=== PATIENT | female | born 1930 | race Caucasian/White ===

== ENCOUNTER 2016-07-19 07:17 | Inpatient (IN) ==
--- NOTE | 2016-07-19 07:34 | Emergency Department Note ---
Disposition Clinical Impression: CHF (congestive heart failure) Disposition: Admitted As Inpatient Condition: Fair Referrals: Brayden Ramirez MD [Primary Care Provider] - Forms: ED Satisfaction Letter Time of Disposition: 10:34 Weakness HPI - General Chief complaint: ED Weakness Stated complaint: Weakness, congestion Time Seen by Provider: 07/19/16 07:24 Source: patient Mode of arrival: ambulatory Limitations: no limitations Nursing Notes Reviewed: Yes Vital Signs Reviewed: Yes - History of Present Illness HPI Narrative: A 6-year-old female with past medical history of hypertension presents with 1-2 days of gradually worsening weakness and exertional dyspnea. She denies any associated cough, chest pain, GI or symptoms. She denies any sick contacts. She denies any injury or recent medication changes. She states that normally she is able to go upstairs home without shortness of breath, but has struggled significantly with that as well as had subjective weakness generally. She denies any confusion, fever, vomiting, rashes or edema. She denies history of similar symptoms. Pt Subjective Complaint: generalized weakness/fatigue Pain Scale: 8 - Related Data Home Medications Medication Instructions Recorded Confirmed Ascorbic Acid [Vitamin C] 1,000 mg PO DAILY 07/19/16 07/19/16 Atenolol [Atenolol] 100 mg PO DAILY 07/19/16 07/19/16 Calcium Carbonate [Calcium] 600 mg PO DAILY 07/19/16 07/19/16 Cholecalciferol (D-3) [Vitamin D] 2,000 unit PO DAILY 07/19/16 07/19/16 Losartan/Hydrochlorothiazide 1 tab PO DAILY 07/19/16 07/19/16 [Losartan-Hctz 100-25 mg Tab] Naproxen Sodium [Aleve] 220 mg PO BID 07/19/16 07/19/16 Pravastatin Sodium [Pravastatin 40 mg PO DAILY 07/19/16 07/19/16 Sodium] Allergies Allergy/AdvReac Type Severity Reaction Status Date / Time No Known Allergies Allergy Verified 07/19/16 07:21 All systems ED: reviewed and negative except as stated. Past Medical History - Past Medical History Attestation: Yes The following information was validated with the patient. Source: patient Medical history: Reports: hypertension Psychiatric history: Reports: no psych history - Social History Smoking Status: Never smoker Smokeless Tobacco Status: No Alcohol use: Reports: none Drug use: Reports: none Physical Exam - Head Head exam: atraumatic, normocephalic, normal inspection - Eye Eye exam: Present: normal appearance, PERRL, EOMI - ENT ENT exam: normal exam, normal oropharynx, mucous membranes moist - Neck Neck exam: Present: normal inspection, full ROM, trachea midline - Chest Chest inspection: Present: normal inspection, symmetric chest wall rise - Respiratory Breath sounds mildly coarse throughout with rales or thing. Patient speaking in 3 to 4 word sentences. Cardiovascular Cardiovascular exam: Present: regular rate, normal rhythm, normal heart sounds - Abdominal Exam Abdominal exam: Present: soft, Non-Tender. Absent: tenderness, distention, guarding, rebound, rigidity - Extremities Exam Extremities exam: Present: normal inspection, full ROM - Expanded Lower Extremity Exam Hip/Pelvis exam: Present: normal inspection, full ROM - Back Exam Back exam: Present: normal inspection, full ROM. Absent: tenderness, CVA tenderness (R), CVA tenderness (L) - Neurological Exam Neurological exam: Present: alert, oriented X3, CN II-XII intact - Psychiatric Psychiatric exam: Present: normal affect, normal mood - Skin Skin exam: Present: warm, dry, intact, normal color - General Limitations: no limitations General appearance: alert, in no apparent distress Course - Reevaluation(s) Reevaluation #1: CTA of the chest is consistent with congestive heart failure. No signs of PE. Patient given nitro paste and Lasix. Patient stable for admission this time. Oxygen saturation is greater than 92% on oxygen by nasal cannula. Time: 10:32 Reevaluation #2: Accepted by Dr. Purdy. Time: 10:36 Vital Signs Temperature 97.4 F L 07/19/16 07:19 Pulse Rate 92 07/19/16 07:19 Respiratory Rate 16 07/19/16 07:19 Blood Pressure 144/89 07/19/16 07:19 O2 Sat by Pulse Oximetry 90 L 07/19/16 07:19 Temperature 97.4 F L 07/19/16 07:19 Pulse Rate 87 07/19/16 09:18 Respiratory Rate 16 07/19/16 09:18 Blood Pressure 130/76 07/19/16 09:18 O2 Sat by Pulse Oximetry 93 L 07/19/16 09:18 Oxygen Delivery Oxygen Delivery Nasal Cannula Weakness - Medical Records Medical records reviewed: Yes I reviewed the patient's medical records. - Lab Data Lab results reviewed: Yes I reviewed the patient's lab results. Result diagrams: 07/19/16 07:58 07/19/16 07:58 Lab Results 07/19/16 07/19/16 07/19/16 Range/Units 07:58 07:58 07:58 WBC 13.8 H (4.3-11.1) K/mcL RBC 4.52 (3.82-4.97) M/mcL Hgb 13.0 (11.5-15.4) g/dL Hct 40.6 (35.3-44.9) % MCV 89.8 (83.0-100.0) fL MCH 28.8 (28.0-33.3) pg MCHC 32.0 (31.6-35.5) g/dL RDW 14.3 (11.5-14.5) % Plt Count 289 (140-400) K/mcL MPV 9.6 (9.4-12.4) fL Immature Gran % 0.4 (0-4) % Seg Neutrophils % 87.6 % Lymphocytes % 6.3 % Monocytes % 4.9 % Eosinophils % 0.3 % Basophils % 0.5 % Neutrophils # 12.1 H (1.6-8.9) K/mcL Lymphocytes # 0.9 (0.6-4.6) K/mcL Monocytes # 0.7 (0.0-1.3) K/mcL Eosinophils # 0.0 (0.0-0.6) K/mcL Basophils # 0.1 (0.0-0.2) K/mcL PT (9.4-12.1) Seconds INR APTT (26.0-36.0) Seconds D-Dimer (0-500) ng/mLFEU Sodium 138 (136-145) mEq/L Potassium 4.1 (3.5-4.5) mEq/L Chloride 103 (98-109) mEq/L Carbon Dioxide 20 (19-29) mEq/L BUN 31 H (7-20) mg/dL Creatinine 1.14 H (0.57-1.11) mg/dL Est GFR ( Amer) 55 L (> 60) Est GFR (Non-Af Amer) 45 L (> 60) BUN/Creatinine Ratio 27 H (6-26) Glucose 120 H (70-99) mg/dL Calculated Osmolality 294 (280-300) Calcium 10.5 (8.6-10.8) mg/dL Troponin I 0.03 (0-0.03) ng/mL B-Natriuretic Peptide (0-100) pg/mL 07/19/16 07/19/16 07/19/16 Range/Units 07:58 07:58 07:58 WBC (4.3-11.1) K/mcL RBC (3.82-4.97) M/mcL Hgb (11.5-15.4) g/dL Hct (35.3-44.9) % MCV (83.0-100.0) fL MCH (28.0-33.3) pg MCHC (31.6-35.5) g/dL RDW (11.5-14.5) % Plt Count (140-400) K/mcL MPV (9.4-12.4) fL Immature Gran % (0-4) % Seg Neutrophils % % Lymphocytes % % Monocytes % % Eosinophils % % Basophils % % Neutrophils # (1.6-8.9) K/mcL Lymphocytes # (0.6-4.6) K/mcL Monocytes # (0.0-1.3) K/mcL Eosinophils # (0.0-0.6) K/mcL Basophils # (0.0-0.2) K/mcL PT 12.9 H (9.4-12.1) Seconds INR 1.2 APTT 27.7 (26.0-36.0) Seconds D-Dimer 1762 H (0-500) ng/mLFEU Sodium (136-145) mEq/L Potassium (3.5-4.5) mEq/L Chloride (98-109) mEq/L Carbon Dioxide (19-29) mEq/L BUN (7-20) mg/dL Creatinine (0.57-1.11) mg/dL Est GFR ( Amer) (> 60) Est GFR (Non-Af Amer) (> 60) BUN/Creatinine Ratio (6-26) Glucose (70-99) mg/dL Calculated Osmolality (280-300) Calcium (8.6-10.8) mg/dL Troponin I (0-0.03) ng/mL B-Natriuretic Peptide 949 H (0-100) pg/mL - Radiology Data Radiology results reviewed: Yes I reviewed the patient's radiology results. - EKG Data EKG attestation: Yes I reviewed and interpreted this EKG. EKG results narrative: Normal size rhythm at 94 with normal axis and intervals. No ST elevation or depression. Nonspecific diffuse T-wave flattening. Nonspecific T wave changes are new compared with 06/28/2005.
[2016-07-19 08:13] LABS: Basophils # 0.1 K/mcL (0.0-0.2); Basophils % 0.5 %; Eosinophils % 0.3 %; Hematocrit 40.6 % (35.3-44.9); Immature Granulocytes % 0.4 % (0-4); Lymphocytes # 0.9 K/mcL (0.6-4.6); Lymphocytes % 6.3 %; Mean Corpuscular Hemoglobin 28.8 pg (28.0-33.3); Mean Corpuscular Volume 89.8 fL (83.0-100.0); Mean Platelet Volume 9.6 fL (9.4-12.4); Monocytes # 0.7 K/mcL (0.0-1.3); Monocytes % 4.9 %; Neutrophils # 12.1 K/mcL (1.6-8.9); Platelet Count 289 K/mcL (140-400); Red Blood Count 4.52 M/mcL (3.82-4.97); Red Cell Distribution Width 14.3 % (11.5-14.5); Segmented Neutrophils % 87.6 %
[2016-07-19 08:24] LABS: Calcium 10.5 mg/dL (8.6-10.8); INR 1.2; Potassium 4.1 mEq/L (3.5-4.5); Prothrombin Time 12.9 Seconds (9.4-12.1)
[2016-07-19 08:27] LABS: Activated Partial Thrombo Time 27.7 Seconds (26.0-36.0)
[2016-07-19] MEDS ORDERED: 0.9 % Sodium Chloride 500 ML IV ONE (09:00)
[2016-07-19] MEDS ORDERED: Furosemide 40 MG/4 ML VIAL IVP ONE (10:29)
[2016-07-19] MEDS ORDERED: Nitroglycerin 1 INCH/GM PACKET TP ONE (10:30)
[2016-07-19] MEDS ORDERED: *HR* Morphine 2 MG/ML SYRINGE IV PRN (10:53)
[2016-07-19] MEDS ORDERED: Ondansetron 4 MG/2 ML VIAL IVP PRN (10:55)
[2016-07-19] MEDS ORDERED: Naloxone 0.4 MG/ML INJ IVP PRN (10:55)
[2016-07-19] MEDS ORDERED: Ibuprofen 400 MG TABLET PO PRN (10:55)
[2016-07-19] MEDS ORDERED: Acetaminophen 325 MG TABLET PO PRN (10:55)
--- NOTE | 2016-07-19 11:01 | Internal Med History&Physical ---
Date of Encounter: 07/19/16 Time of Encounter: 10:59 Assessment and Plan (1) CHF (congestive heart failure) Current visit: Yes Status: Acute Acute hypoxic respiratory failure secondary to pulmonary edema with bilateral pleural effusions likely secondary to acute CHF systolic versus diastolic, new onset Continue aggressive diuresis with IV Lasix, BiPAP, oxygen therapy Strict I's and O's, daily weight Echocardiogram Qualifiers: Congestive heart failure type: unspecified congestive heart failure type Congestive heart failure chronicity: acute Qualified Code(s): I50.9 - Heart failure, unspecified (2) Respiratory failure Current visit: Yes Status: Acute Qualifiers: Chronicity: acute Respiratory failure complication: hypoxia Qualified Code(s): J96.01 - Acute respiratory failure with hypoxia (3) Hypertension Current visit: Yes Status: Acute Qualifiers: Hypertension type: essential hypertension Qualified Code(s): I10 - Essential (primary) hypertension (4) Hyperlipidemia Current visit: Yes Status: Acute Qualifiers: Hyperlipidemia type: unspecified Qualified Code(s): E78.5 - Hyperlipidemia , unspecified (5) Leukocytosis Current visit: Yes Status: Acute CT scan possibly shows a small bibasilar infiltrates May discontinue Rocephin Omeprazole for GI prophylaxis and subcutaneous heparin for DVT prophylaxis. The patient will be admitted as inpatient, she is expected to stay more than 2 midnights. Full code. Time spent on this admission 40 minutes. High risk due to respiratory failure Qualifiers: Leukocytosis type: unspecified Qualified Code(s): D72.829 - Elevated white blood cell count, unspecified Internal Medicine - H&P: HPI Chief complaint: Shortness of breath Admitted From: Emergency Dept History of present illness: Ms. Marshall is a 86 year old female with no history of CHF, medical history of hypertension and hyperlipidemia. Comes to the emergency room in severe respiratory distress that has been getting worse for the past 2 days. The patient was not able to lay flat and was not able to speak in full sentences. She denied any sick contacts. A d-dimer was elevated for which CT angiogram chest was performed showing bilateral pleural effusions with pulmonary edema but no pulmonary emboli. Also shows T12 burst fracture. White blood cell count is 13.8 heart rate 92, the patient desaturated down to the 70s and is currently on BiPAP. BNP is 949. She was given a dose of Lasix at the emergency room. Denies any chest pain at the moment, no other complaints but is still in distress. Past Med Surg Social Fam HX - Past Medical History Medical history: hyperlipidemia, hypertension, other (Vitamin D deficiency, osteopenia, compression fractures) Psychiatric history: no psych history - Past Surgical History Surgical History: other (Hysterectomy and multiple back surgeries) - Social History Smoking Status: Never smoker Smokeless Tobacco Status: No Alcohol use: none Drug use: none - Additional Family History Additional family history: No family history Internal Medicine - H&P: Meds Ascorbic Acid [Vitamin C] 1,000 mg PO DAILY 07/19/16 [History] Atenolol [Atenolol] 100 mg PO DAILY 07/19/16 [History] Calcium Carbonate [Calcium] 600 mg PO DAILY 07/19/16 [History] Cholecalciferol (D-3) [Vitamin D] 2,000 unit PO DAILY 07/19/16 [History] Losartan/Hydrochlorothiazide [Losartan-Hctz 100-25 mg Tab] 1 tab PO DAILY [History] Naproxen Sodium [Aleve] 220 mg PO BID 07/19/16 [History] Pravastatin Sodium [Pravastatin Sodium] 40 mg PO DAILY 07/19/16 [History] Allergies No Known Allergies Allergy (Verified 07/19/16 07:21) All Systems PM: A 10-system review of systems was performed and is negative for pertinent findings except as documented above in the HPI. Review of systems: Very short of breath, no fevers, no abdominal pain, no dysuria. Other systems out of the 10 reviewed were negative - Constitutional Vitals: Temp Pulse Resp BP Pulse Ox 97.4 F L 87 16 130/76 99 07/19/16 07:19 07/19/16 09:18 07/19/16 10:54 07/19/16 09:18 07/19/16 10:54 General appearance: Present: A&O X 3, severe distress - Head Head exam: Present: atraumatic, normocephalic - Eye Eye exam: Present: PERRL, conjuntiva pink, sclera anicteric Pupils: Present: PERRL - Neck Neck exam general surgery: Present: supple, trachea midline. Absent: lymphadenopathy - Respiratory Respiratory exam: Present: CTAB, rales (Diffuse coarse crackles with blunted breath sounds at both bases). Absent: accessory muscle use, rhonchi, wheezes - Cardiovascular Cardiovascular exam: Present: RRR, +S1, +S2. Absent: diastolic murmur, gallop, rubs, systolic murmur - GI/Abdominal GI/Abdominal exam: Present: normal bowel sounds, soft, no peritoneal signs. Absent: distended, tenderness - Extremities Exam Extremities exam: Present: pedal edema (+ 1 pitting edema in both lower extremities), warm, radial pulses palpable and symetrical. Absent: calf tenderness, cyanotic - Neurological Exam Neurological exam: Present: CN II-XII intact, oriented X3, no focal deficits. Absent: pronater drift, facial droop, speech deficit - Skin Skin exam: Present: dry, intact Internal Med - H&P Results - Labs CBC & Chem 7: 07/19/16 07:58 07/19/16 07:58
[2016-07-19 11:08] LABS: Bilirubin,Urine Negative (Negative); Blood,Urine Small (Negative); Clarity,Urine Clear (Clear); Color,Urine Yellow (Yellow); Glucose,Urine (UA) Normal (Normal); Ketones,Urine Negative (Negative); Leukocyte Esterase,Urine Trace (Negative); Nitrite,Urine Negative (Negative); Protein,Urine Negative (Neg-Trace); Specific Gravity,Urine 1.022 (1.010-1.025); Urobilinogen,Urine Normal (Normal)
[2016-07-19 11:12] LABS: Bacteria,Urine None Seen per hpf (None-Few); Hyaline Casts,Urine None Seen per lpf (None-Few); Squamous Epithelial Cell,Urine Many per lpf (None-Few); WBC,Urine 0-3 per hpf (0-3)
[2016-07-19] MEDS: Furosemide 40 MG/4 ML VIAL IV SCH ×2 (13:19→17:29)
[2016-07-19] MEDS: *HR* Heparin 5,000 UNIT/ML VIAL SQ SCH ×2 (17:30→23:39)
--- NOTE | 2016-07-19 19:05 | ECHO - Doppler Report ---
Echocardiogram Name: Meagan Marshall Date of Study: 07/19/2016 Date: 1930 Ht: 61.0 in Medical Record#: [id number] Age: 86 Wt: 147.0 lb Gender: Female BSA: 1.66 Order #: [id number] Location: [facility] Room #: 2A32 Reading Physician: Houston Cardenas DO, FACC, FASE, PIETRO Channel Layer: PALLAVI DavisT, [facility] Ordering Physician: Patricio Serrano MD Primary Physician: Brayden Ramirez MD Indications: Congestive heart failure Impressions: LVEF 60-65%. Normal LV chamber size and function. Normal left ventricular diastolic function. Mild concentric left ventricular hypertrophy. Normal right ventricular structure and function. No evidence of pulmonary hypertension. No significant valvular dysfunction. Left Ventricular Wall Motion: Rest Echo Findings All wall segments showed normal motion. Findings: Study Quality * Technically adequate exam. ECG Findings * Normal sinus rhythm. Left Ventricle * LVEF 60-65%. * Normal LV chamber size and function. * Mild concentric left ventricular hypertrophy. * Normal left ventricular diastolic function. Right Ventricle * Normal right ventricular structure and function. Left Atrium * Mildly dilated left atrium. Right Atrium * Normal right atrial size. Interatrial Septum * Interatrial septum not well evaluated. Aortic Valve * Trileaflet aortic valve. * Mildly sclerotic aortic valve leaflets. * No aortic regurgitation. * No aortic stenosis. Mitral Valve * Mild mitral annular calcification with mild thickening of the mitral valve leaflets. * Trace mitral regurgitation. * No mitral stenosis. Tricuspid Valve * Normal tricuspid valve structure and function. * Trace tricuspid regurgitation. * No evidence of pulmonary hypertension. Pulmonic Valve * Pulmonic valve not well visualized. * No pulmonic regurgitation. Aorta * Normally sized aortic root. Pericardium * The pericardium appears normal. IVC * The IVC is not well evaluated. Pulmonary Artery * Normal visualized portions of the main pulmonary artery. History Hypertension Hypercholesteremia Measurements: BP: 165/ 107 2D Normal Values RVIDd: 3.30 cm <2.7 cm IVSd: 1.20 cm 0.6 - 1.0 cm LVIDd: 3.20 cm 3.7 - 5.6 cm LVPWd: 1.20 cm 0.6 - 1.1 cm LVIDs: 1.70 cm 1.5 - 3.6 cm AO: 2.50 cm < 4.0 cm LA: 4.00 cm 2.0 - 4.0cm %FS: 46.90 cm >25 % LVOT Diam: 1.90 cm LA volume: 32 Mitral Valve Dec Time:225.00 msec Peak E:1.19 m/sec Peak A:.62 m/sec E/A Ratio:1.9 Peak E' Lat Tony:8.77 cm/s Peak E' Med Tony:7.31 cm/s E/E' Lat Ratio:13.6 E/E' Med Ratio:16.3 Tricuspid Valve TV Regurg Peak Grad: 31.00mmHg TV Regurg Peak Tony: 2.78m/sec Updated by Houston Cardenas DO, DANNI, INGRID, PIETRO on 07/19/2016 7:00:22 PM electronically signed on 07/19/2016 7:00:50 PM with status of Final Wall Motion [place]: 1=Normal, 2=Hypokinesis, 3=Akinesis, 4=Dyskinesis, 5=Aneurysmal, 6=Hyperkinetic, X=Not Visualized (Blank)=Missing
[2016-07-20 05:45] LABS: Calcium 9.1 mg/dL (8.6-10.8)
[2016-07-20 05:57] LABS: Potassium 2.9 mEq/L (3.5-4.5)
[2016-07-20 06:28] LABS: Hematocrit 34.5 % (35.3-44.9); Mean Corpuscular HGB Conc 32.2 g/dL (31.6-35.5); Mean Corpuscular Hemoglobin 28.7 pg (28.0-33.3); Mean Corpuscular Volume 89.1 fL (83.0-100.0); Mean Platelet Volume 10.4 fL (9.4-12.4); Platelet Count 249 K/mcL (140-400); Red Blood Count 3.87 M/mcL (3.82-4.97); Red Cell Distribution Width 14.5 % (11.5-14.5)
[2016-07-20 06:36] LABS: Hemoglobin 11.1 g/dL (11.5-15.4)
[2016-07-20] MEDS: Aspirin 81 MG TAB.CHEW PO SCH (08:22)
[2016-07-20] MEDS: Losartan/HCTZ 50-12.5 TABLET PO SCH (08:23)
[2016-07-20] MEDS: Furosemide 40 MG/4 ML VIAL IV SCH (08:23)
[2016-07-20] MEDS: *HR* Heparin 5,000 UNIT/ML VIAL SQ SCH ×3 (08:33→23:15)
--- NOTE | 2016-07-20 11:22 | Internal Med Progress Note ---
Date of Encounter: 07/20/16 Time of Encounter: 11:20 - Assessment and plan (1) Acute respiratory failure Current Visit: Yes Status: Acute Assessment and plan: Likely related to accelerated hypertension. Chest x-ray showed cardiomegaly along with bilateral mild pleural effusions. 2-D echocardiogram shows preserved ejection fraction with no significant valvular abnormalities, normal structure and function of left and right ventricles. Will decrease the dose of IV Lasix at this time as patient is noted to have significant urine output and renal dysfunction. Continue fluid restriction, urine output monitoring and daily weights. Continue supplemental oxygen as needed. Patient was noted to require noninvasive positive pressure ventilation at admission, she is currently off BiPAP and is noted to be comfortable. Physical therapy evaluation. Qualifiers: Respiratory failure complication: hypoxia Qualified Code(s): J96.01 - Acute respiratory failure with hypoxia (2) Pulmonary edema Current Visit: Yes Status: Acute Assessment and plan: Likely related to hypertensive urgency. Plan as above. Qualifiers: Chronicity: acute Qualified Code(s): J81.0 - Acute pulmonary edema (3) Hypokalemia Current Visit: Yes Status: Acute Assessment and plan: Likely related to the use of diuretics. Supplement with oral and IV potassium chloride. Monitor electrolytes closely. (4) Hyperlipidemia Current Visit: Yes Status: Chronic Qualifiers: Hyperlipidemia type: mixed hyperlipidemia Qualified Code(s): E78.2 - Mixed hyperlipidemia (5) Hypertension Current Visit: Yes Status: Chronic Qualifiers: Hypertension type: essential hypertension Qualified Code(s): I10 - Essential (primary) hypertension - Subjective Interval history: Feels much better today. Reports mild generalized weakness but no chest pain, shortness of breath, leg swelling, orthopnea or palpitations. Noted to require supplemental oxygen. No cough, fever or chills. - Constitutional Vitals: Temp Pulse Resp BP Pulse Ox 97.8 F 61 16 120/76 97 07/20/16 10:47 07/20/16 10:47 07/20/16 10:47 07/20/16 10:47 07/20/16 10:47 General appearance: Present: A&O X 3, answers questions appropriately - Head Head exam: Present: atraumatic, normocephalic - Neck Neck exam general surgery: Present: supple, trachea midline. Absent: lymphadenopathy - Respiratory Respiratory exam: Present: rales (Faint crackles at right base). Absent: accessory muscle use, rhonchi, wheezes - Cardiovascular Cardiovascular exam: Present: RRR, +S1, +S2. Absent: diastolic murmur, gallop, rubs, systolic murmur - GI/Abdominal GI/Abdominal exam: Present: normal bowel sounds, soft, no peritoneal signs. Absent: distended, tenderness - Extremities Exam Extremities exam: Present: full ROM, warm, radial pulses palpable and symetrical. Absent: calf tenderness, cyanotic, pedal edema - Neurological Exam Neurological exam: Present: CN II-XII intact, oriented X3, no focal deficits. Absent: pronater drift, facial droop, speech deficit - Skin Skin exam: Present: dry, intact Internal Medicine: Result - Labs CBC & Chem 7: 07/20/16 04:47 07/20/16 04:47 Labs: Short CBC 07/20/16 Range/Units 04:47 WBC 10.3 (4.3-11.1) K/mcL Hgb 11.1 L D (11.5-15.4) g/dL Hct 34.5 L (35.3-44.9) % Plt Count 249 (140-400) K/mcL BMP 07/20/16 04:47 Sodium 139 Potassium 2.9 L D Chloride 102 Carbon Dioxide 24 BUN 30 H Creatinine 1.21 H Glucose 109 H Calcium 9.1 - ABG Interpretation ABG results: PT/INR, D-dimer PT 12.9 Seconds (9.4-12.1) H 07/19/16 07:58 D-Dimer 1762 ng/mLFEU (0-500) H 07/19/16 07:58 Consult Discharge Plan - Plan Referrals: Brayden Ramirez MD [Primary Care Provider] - (web request 07/20/2016 @ 1520)
[2016-07-20] MEDS: Azithromycin 500 MG in D5% in Water 250 ML IVPB SCH (12:04)
[2016-07-20] MEDS: Potassium Chloride Elixir 20 MEQ/15 ML UDC PO SCH ×2 (12:05→16:09)
[2016-07-20] MEDS: Furosemide 20 MG/2 ML VIAL IVP SCH (16:14)
--- NOTE | 2016-07-20 19:51 | Electrocardiograph Report ---
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
[2016-07-21 05:21] LABS: Calcium 9.5 mg/dL (8.6-10.8); Magnesium 1.7 mg/dL (1.6-2.6); Phosphorous 3.1 mg/dL (2.3-4.7); Potassium 3.4 mEq/L (3.5-4.5)
[2016-07-21] MEDS: *HR* Heparin 5,000 UNIT/ML VIAL SQ SCH (06:04)
[2016-07-21] MEDS: Furosemide 20 MG/2 ML VIAL IVP SCH (08:15)
[2016-07-21] MEDS: Aspirin 81 MG TAB.CHEW PO SCH (08:15)
[2016-07-21] MEDS: Losartan/HCTZ 50-12.5 TABLET PO SCH (08:15)
[2016-07-21] MEDS ORDERED: Potassium Chloride Elixir 20 MEQ/15 ML UDC PO ONE (10:24)
[2016-07-21] MEDS ORDERED: *HR* OxyCODONE Immed Rel 5 MG TABLET PO PRN (12:55)
--- NOTE | 2016-07-21 14:43 | Internal Med Progress Note ---
Date of Encounter: 07/21/16 Time of Encounter: 12:15 - Assessment and plan (1) Acute respiratory failure Current Visit: Yes Status: Acute Assessment and plan: Likely related to accelerated hypertension. CT angiogram of chest showed no evidence of pulmonary embolism but showed cardiomegaly and bilateral pleural effusions and possible pulmonary edema. 2-D echocardiogram shows preserved ejection fraction with no significant valvular abnormalities, normal structure and function of left and right ventricles. We will change Lasix to oral Lasix. Continue fluid restriction, urine output monitoring and daily weights. Continue supplemental oxygen as needed. Physical and occupational therapy evaluation pending. Qualifiers: Respiratory failure complication: hypoxia Qualified Code(s): J96.01 - Acute respiratory failure with hypoxia (2) Pulmonary edema Current Visit: Yes Status: Acute Assessment and plan: Likely related to hypertensive urgency. Plan as above. Qualifiers: Chronicity: acute Qualified Code(s): J81.0 - Acute pulmonary edema (3) Hypokalemia Current Visit: Yes Status: Acute Assessment and plan: Likely related to the use of diuretics. Supplement with oral potassium chloride. Monitor electrolytes closely. (4) Hyperlipidemia Current Visit: Yes Status: Chronic Qualifiers: Hyperlipidemia type: mixed hyperlipidemia Qualified Code(s): E78.2 - Mixed hyperlipidemia (5) Hypertension Current Visit: Yes Status: Chronic Qualifiers: Hypertension type: essential hypertension Qualified Code(s): I10 - Essential (primary) hypertension - Subjective Interval history: Slightly drowsy in the morning but became more alert towards the afternoon. No chest pain, shortness of breath, orthopnea. Has not been using BiPAP since yesterday. Reports no new complaints. - Constitutional Vitals: Temp Pulse Resp BP Pulse Ox 98.2 F 69 16 126/70 96 07/21/16 11:08 07/21/16 11:08 07/21/16 11:08 07/21/16 11:08 07/21/16 11:08 General appearance: Present: A&O X 3 (occasional forgetfulness), answers questions appropriately - Neck Neck exam general surgery: Present: supple, trachea midline. Absent: lymphadenopathy - Respiratory Respiratory exam: Present: CTAB (improving bibasal crepts). Absent: accessory muscle use, rales, rhonchi, wheezes - Cardiovascular Cardiovascular exam: Present: RRR, +S1, +S2. Absent: diastolic murmur, gallop, rubs, systolic murmur - GI/Abdominal GI/Abdominal exam: Present: normal bowel sounds, soft, no peritoneal signs. Absent: distended, tenderness - Extremities Exam Extremities exam: Present: warm, radial pulses palpable and symetrical. Absent : calf tenderness, cyanotic, pedal edema Internal Medicine: Result - Labs CBC & Chem 7: 07/20/16 04:47 07/21/16 04:34 Labs: BMP 07/21/16 04:34 Sodium 140 Potassium 3.4 L Chloride 103 Carbon Dioxide 24 BUN 27 H Creatinine 1.07 Glucose 105 H Calcium 9.5 - ABG Interpretation ABG results: PT/INR, D-dimer PT 12.9 Seconds (9.4-12.1) H 07/19/16 07:58 D-Dimer 1762 ng/mLFEU (0-500) H 07/19/16 07:58 Consult Discharge Plan - Plan Referrals: Brayden Ramirez MD [Primary Care Provider] - (web request 07/20/2016 @ 2806)
[2016-07-21] MEDS: Azithromycin 500 MG in D5% in Water 250 ML IVPB SCH (15:41)
[2016-07-21] MEDS: Furosemide 20 MG TABLET PO SCH (16:41)
[2016-07-22] MEDS: *HR* Heparin 5,000 UNIT/ML VIAL SQ SCH ×2 (01:04→06:02)
[2016-07-22 06:00] LABS: BUN/Creatinine Ratio 28 (6-26); Blood Urea Nitrogen 29 mg/dL (7-20); Calcium 9.4 mg/dL (8.6-10.8); Carbon Dioxide 25 mEq/L (19-29); Chloride 100 mEq/L (98-109); Glucose 105 mg/dL (70-99); Magnesium 1.8 mg/dL (1.6-2.6); Osmolality,Calculated 294 (280-300); Potassium 3.4 mEq/L (3.5-4.5); Sodium 139 mEq/L (136-145); eGFR For African Americans > 60 (> 60); eGFR For Non-African Americans 51 (> 60)
[2016-07-22] MEDS: Aspirin 81 MG TAB.CHEW PO SCH (08:36)
[2016-07-22] MEDS: Furosemide 20 MG TABLET PO SCH (08:37)
[2016-07-22] MEDS: Losartan/HCTZ 50-12.5 TABLET PO SCH (08:37)
[2016-07-22] MEDS: Azithromycin 500 MG in D5% in Water 250 ML IVPB SCH (11:20)
[2016-07-22 11:46] VITALS: BP 131/71
--- NOTE | 2016-07-22 15:33 | Discharge Summary ---
Date of Encounter: 07/22/16 Time of Encounter: 12:00 - Discharge Diagnosis (1) Acute respiratory failure Priority: Primary Status: Acute Comments: Was secondary to accelerated HTN Chest CT on admission showed no PE, no infiltrates, but cardiomegaly and pulmonary edema 2D ECHO shoed preserved EF with no significant valvular abnormalities, normal structure and function of right ventricles Patient was placed on fluid restriction, BiPAP and lasix IV She has since been weaned off BIPAP She has been switched to po lasix and potassium supplements which she is tolerating She is stale for discharge home She was reviewed by PT/OT and patient has no requirements for asistance at home She is saturating well on room air and has no need for home O2 She states has received Flu shot Qualifiers: Respiratory failure complication: hypoxia Qualified Code(s): J96.01 - Acute respiratory failure with hypoxia (2) CHF (congestive heart failure) Priority: Primary Status: Acute Qualifiers: Congestive heart failure type: unspecified congestive heart failure type Congestive heart failure chronicity: acute Qualified Code(s): I50.9 - Heart failure, unspecified (3) Hypokalemia Priority: Secondary Status: Resolved (4) Pulmonary edema Priority: Secondary Status: Resolved Qualifiers: Chronicity: acute Qualified Code(s): J81.0 - Acute pulmonary edema (5) Hyperlipidemia Priority: Secondary Status: Chronic Qualifiers: Hyperlipidemia type: mixed hyperlipidemia Qualified Code(s): E78.2 - Mixed hyperlipidemia (6) Hypertension Priority: Secondary Status: Chronic Qualifiers: Hypertension type: essential hypertension Qualified Code(s): I10 - Essential (primary) hypertension - Discharge Medications Prescriptions: Furosemide [Lasix] 20 mg PO BIDDIURETIC #60 tablet Potassium Chloride 10 meq PO DAILY #30 tab.er.prt Home Medications: Ascorbic Acid [Vitamin C] 1,000 mg PO DAILY 07/19/16 [History] Atenolol 100 mg PO DAILY 07/19/16 [History] Calcium Carbonate [Calcium] 600 mg PO DAILY 07/19/16 [History] Cholecalciferol (D-3) [Vitamin D] 2,000 unit PO DAILY 07/19/16 [History] Losartan/Hydrochlorothiazide [Losartan-Hctz 100-25 mg Tab] 1 tab PO DAILY [History] Pravastatin Sodium 40 mg PO DAILY 07/19/16 [History] Acetaminophen [Tylenol] 650 mg PO Q6HR PRN #0 tablet 07/22/16 [Rx] Furosemide [Lasix] 20 mg PO BIDDIURETIC #60 tablet 07/22/16 [Rx] Potassium Chloride 10 meq PO DAILY #30 tab.er.prt 07/22/16 [Rx] Allergies/Adverse Reactions: Allergies No Known Allergies Allergy (Verified 07/19/16 07:21) Date of admission: 07/19/16 13:50 Primary care physician: Brayden Ramirez MD Consults: 07/21/16 12:15 PT [Consult to Physical Therapy] [CONS] Routine Comment: Evaluate, develop and implement POC 07/21/16 12:16 OT [Consult to Occupational Therapy] [CONS] Routine Comment: Evaluate, develop and implement POC Discharging clinician: Getachew Vega Anticipated date of discharge: 07/22/16 - Patient Status Disposition: Home, Self-Care Condition: Fair Functional capacity at discharge: uses cane/walker Overall status at discharge: patient is progressing back to baseline - Discharge Instructions Follow Up With: Brayden Ramirez MD [Primary Care Provider] - 07/25/16 1:00 pm (Please folow up as schedule...) - Diet and Activity Activity: resume usual activities as tolerated Diet: low fat, low cholesterol, low salt diet Interval History: See below Hospital course: Ms. Marshall is a 86 year old female with PMH of HTN She was admitted for acute hypoxic respiratory failure secondary to accelerated HTN with Pulmonary edema She has since made significant improvement and no longer needs O2 She has been adequately diuresed Home medications has since been restarted She had leukocytosis on admission and was started on empiric antibiotics for possible pneumonia, however, there were no clinical signs of pneumonia and IV antibiotics were discontinued Patient is stable for discharged home with family Other details as in diagnoses - Time Spent with Patient Total time spent providing and/or coordinating discharge services: Less than 30 minutes - Constitutional Vitals: Temp Pulse Resp BP Pulse Ox 98.2 F 65 17 131/71 96 07/22/16 11:40 07/22/16 11:40 07/22/16 11:40 07/22/16 11:40 07/22/16 11:40 General appearance: Present: A&O X 3 (occasional forgetfulness), pleasant, no acute distress, answers questions appropriately - Head Head exam: Present: atraumatic, normocephalic - Eye Eye exam: Present: PERRL, conjuntiva pink, sclera anicteric Pupils: Present: PERRL - Neck Neck exam general surgery: Present: supple, trachea midline. Absent: lymphadenopathy - Respiratory Respiratory exam: Present: CTAB. Absent: rales, rhonchi, stridor, wheezes - Cardiovascular Cardiovascular exam: Present: RRR, +S1, +S2. Absent: diastolic murmur, gallop, JVD, rubs, systolic murmur - GI/Abdominal GI/Abdominal exam: Present: normal bowel sounds, soft, no peritoneal signs. Absent: distended, tenderness - Extremities Exam Extremities exam: Present: warm, radial pulses palpable and symetrical. Absent : calf tenderness, cyanotic, pedal edema - Neurological Exam Neurological exam: Present: CN II-XII intact, oriented X3, no focal deficits. Absent: pronater drift, facial droop, speech deficit - Skin Skin exam: Present: dry
== END 2016-07-22 16:20 | disposition home or self-care (01) | DRG 304 ==
LOC: 3BNU 07:17 → EMEROO 07:17 → 2ANU 11:06 → SUATTDRO 13:50
PROVIDERS: ADMIT Nurse Practitioner Family; ATTEND Internal Medicine

== ENCOUNTER 2017-10-26 18:17 | Inpatient (IN) ==
[2017-10-26] MEDS ORDERED: Naloxone 0.4 MG/ML INJ IVP PRN (22:13)
[2017-10-26] MEDS ORDERED: Acetaminophen 325 MG TABLET PO PRN (22:13)
[2017-10-26] MEDS ORDERED: *HR* Heparin 5,000 UNIT/ML VIAL IVP PRN ×2 (22:16)
[2017-10-26] MEDS ORDERED: *HR* Heparin 5,000 UNIT/ML VIAL IVP ONE (22:16)
--- NOTE | 2017-10-26 22:26 | Internal Med History&Physical ---
Date of Encounter: 10/26/17 Time of Encounter: 20:00 Internal Medicine - H&P: HPI Chief complaint: Slurred speech Admitted From: Home Plans for Post Hospital Care: Home History of present illness: Ms. Marshall is a 87 year old female transferred from [facility] ER for slurred speech. Past medical history is significant for hypertension, hyperlipidemia. When I saw patient in the floor, patient is awake alert, but oriented 0. Patient can talk and also questions, speech is not slurred to me. History is mainly obtained from patient's daughter (and POA), Patsy. Around 1 PM, when patient talked to her nephew on phone, she was noticed has slurred speech. EMS was called by family and the patient was sent to [facility] emergency room. In [facility] emergency room, CT head has been done, unremarkable. Patient was found A. fib, patient has no history of A. fib previously. Labs generally unremarkable. Patient was transferred to our hospital for further management. Per patient's daughter, patient has progressive memory loss in last 4-5 weeks, she was referred to see neurology but not see neurology yet. Upon asking patient, she denies headache, dizziness, shortness of breath, chest pain, cough, abdominal pain, urination symptoms, or diarrhea. Per patient's daughter, patient's CODE STATUS is full code. Past Med Surg Social Fam HX - Past Medical History Medical history: hyperlipidemia, hypertension Psychiatric history: no psych history - Past Surgical History Surgical History: other - Social History Smoking Status: Never smoker Smokeless Tobacco Status: No Alcohol use: none Drug use: none - Family History Mother History Unknown: Yes Internal Medicine - H&P: Meds Ascorbic Acid [Vitamin C] 1,000 mg PO DAILY 07/19/16 [History] Atenolol 100 mg PO DAILY 07/19/16 [History] Calcium Carbonate [Calcium] 600 mg PO DAILY 07/19/16 [History] Cholecalciferol (D-3) [Vitamin D] 2,000 unit PO DAILY 07/19/16 [History] Losartan/Hydrochlorothiazide [Losartan-Hctz 100-25 mg Tab] 1 tab PO DAILY [History] Acetaminophen [Tylenol] 650 mg PO Q6HR PRN #0 tablet 07/22/16 [Rx] Furosemide [Lasix] 20 mg PO BIDDIURETIC #60 tablet 07/22/16 [Rx] Potassium Chloride 10 meq PO DAILY #30 tab.er.prt 07/22/16 [Rx] 3 Allergy/AdvReac Type Severity Reaction Status Date / Time No Known Allergies Allergy Verified 07/19/16 07:21 All Systems PM: A 10-system review of systems was performed and is negative for pertinent findings except as documented above in the HPI. - Constitutional Vitals: Temp Pulse Resp BP Pulse Ox 97.4 F L 73 15 152/84 95 10/26/17 20:16 10/26/17 20:16 10/26/17 20:16 10/26/17 20:16 10/26/17 20:16 General appearance: Present: A&O X 0, pleasant, no acute distress, answers questions appropriately - Head Head exam: Present: atraumatic, normocephalic - Eye Eye exam: Present: PERRL, conjuntiva pink, sclera anicteric Pupils: Present: PERRL - Neck Neck exam general surgery: Present: supple, trachea midline. Absent: lymphadenopathy - Respiratory Respiratory exam: Present: CTAB. Absent: accessory muscle use, rales, rhonchi, wheezes - Cardiovascular Cardiovascular exam: Present: RRR, +S1, +S2. Absent: diastolic murmur, gallop, rubs, systolic murmur - GI/Abdominal GI/Abdominal exam: Present: normal bowel sounds, soft, no peritoneal signs. Absent: distended, tenderness - Extremities Exam Extremities exam: Present: warm, radial pulses palpable and symmetrical. Absent : calf tenderness, cyanotic, pedal edema - Neurological Exam Neurological exam: Present: CN II-XII intact, oriented X3, no focal deficits. Absent: pronater drift, facial droop, speech deficit - Skin Skin exam: Present: dry, intact Internal Med - H&P Results - EKG Data -: EKG Interpreted by Myself (Pedro murillo) - Assessment and plan (1) Hyperlipidemia Current Visit: No Status: Chronic Assessment and plan: Patient is not on any medication at home at this point. We will check lipid panel. Qualifiers: Hyperlipidemia type: mixed hyperlipidemia Qualified Code(s): E78.2 - Mixed hyperlipidemia (2) Hypertension Current Visit: No Status: Chronic Assessment and plan: We will continue home medications. Qualifiers: Hypertension type: essential hypertension Qualified Code(s): I10 - Essential (primary) hypertension (3) TIA (transient ischemic attack) Current Visit: Yes Status: Acute Assessment and plan: Patient has slurred speech which improved now. Consider TIA. Physical exam shows no focal neural deficit. - As patient has A. fib, will start heparin drip now. - Echo and duplex carotid bilaterally - Continuous cardiac monitoring - NIH SS q4hrs per protocol - Patient passed bedside swallow evaluation - Consult neurology for further management, considering patient also has progressive memory loss. Qualifiers: Transient cerebral ischemia type: unspecified Qualified Code(s): G45.9 - Transient cerebral ischemic attack, unspecified (4) A-fib Current Visit: Yes Status: Acute Assessment and plan: Patient was found A. fib in [facility] ER. No history of A. fib previously. Onset time is unclear. - As patient has TIA, will start heparin drip now. - Continue home medication atenolol for rate control. - Echo, TSH, magnesium - Consult cardiology for further management. Qualifiers: Atrial fibrillation type: unspecified Qualified Code(s): I48.91 - Unspecified atrial fibrillation (5) Dementia Current Visit: Yes Status: Acute Assessment and plan: Patient has memory loss. Etiology is undetermined. Most likely due to old age. - We will check TSH, vitamin B12, and folate level. - Consult neurology for further management. Qualifiers: Dementia type: unspecified type Dementia behavioral disturbance: without behavioral disturbance Qualified Code(s): F03.90 - Unspecified dementia without behavioral disturbance (6) DVT prophylaxis Current Visit: Yes Status: Acute Assessment and plan: Patient is on heparin drip. - Time Spent With Patient Total time spent is greater than 50% in coordination of care (as documented) at patient's floor/unit and/or counseling patient: 40 minutes Greater than 35 minutes
[2017-10-26 22:48] LABS: Basophils % 0.4 %; Eosinophils # 0.1 K/mcL (0.0-0.6); Eosinophils % 0.5 %; Hematocrit 43.8 % (35.3-44.9); Hemoglobin 13.9 g/dL (11.5-15.4); Immature Granulocytes % 0.2 % (0-4); Lymphocytes # 1.9 K/mcL (0.6-4.6); Lymphocytes % 17.1 %; Mean Corpuscular HGB Conc 31.7 g/dL (31.6-35.5); Mean Corpuscular Hemoglobin 28.8 pg (28.0-33.3); Mean Corpuscular Volume 90.9 fL (83.0-100.0); Mean Platelet Volume 10.4 fL (9.4-12.4); Monocytes # 0.9 K/mcL (0.0-1.3); Monocytes % 8.4 %; Platelet Count 269 K/mcL (140-400); Red Blood Count 4.82 M/mcL (3.82-4.97); Red Cell Distribution Width 14.7 % (11.5-14.5); Segmented Neutrophils % 73.4 %
[2017-10-26 22:56] LABS: INR 1.1; Prothrombin Time 12.3 Seconds (9.4-12.1)
[2017-10-26 22:58] LABS: Activated Partial Thrombo Time 28.1 Seconds (26.0-36.0)
[2017-10-26 23:11] LABS: BUN/Creatinine Ratio 23 (6-26); Blood Urea Nitrogen 23 mg/dL (8-23); Carbon Dioxide 27 mEq/L (23-29); Chloride 101 mEq/L (98-107); Glucose 129 mg/dL (70-105); Osmolality,Calculated 291 (280-300); Potassium 4.4 mEq/L (3.5-5.1); Sodium 138 mEq/L (136-145); eGFR For African Americans > 60 (> 60); eGFR For Non-African Americans 54 (> 60)
[2017-10-26] MEDS: Heparin 25,000 UNIT/500 ML D5W 25,000 UNIT/500 ML BAG IVC SCH (23:39)
[2017-10-27] MEDS ORDERED: Haloperidol Lactate 5 MG/ML VIAL IVP ONE (03:06)
[2017-10-27 06:47] LABS: Activated Partial Thrombo Time 126.5 Seconds (26.0-36.0)
[2017-10-27 06:50] LABS: Chol/HDL Ratio 3.1 (0-4.9); Magnesium 1.9 mg/dL (1.6-2.6)
[2017-10-27 06:52] LABS: Heparin anti-factor XA UFH 0.79 IU/mL (0.30-0.70)
[2017-10-27 07:15] LABS: Folate 21.9 ng/mL (3.0-16.0)
[2017-10-27] MEDS: Ascorbic Acid 500 MG TABLET PO SCH (07:48)
[2017-10-27] MEDS: Furosemide 20 MG TABLET PO SCH ×2 (07:49→16:17)
[2017-10-27] MEDS: Cholecalciferol (D-3) 1,000 UNIT TABLET PO SCH (07:49)
[2017-10-27] MEDS: Losartan/HCTZ 50-12.5 TABLET PO SCH (07:49)
--- NOTE | 2017-10-27 10:23 | Neurology - Consult Note ---
Date of Encounter: 10/27/17 Time of Encounter: 10:23 Assessment and Plan (1) CVA (cerebral vascular accident) Current Visit: Yes Status: Suspected Patient's neuro exam nonfocal, nonlateralizing except for right upper and lower extremity weakness. On presentation patient had slurred speech however this is not present this morning. Patient was newly diagnosed with atrial fibrillation now on heparin. Currently awaiting echocardiogram, carotid duplex, MRI. We will start patient on aspirin and statin. Qualifiers: CVA mechanism: unspecified Qualified Code(s): I63.9 - Cerebral infarction, unspecified (2) Acute memory impairment Current Visit: Yes Status: Acute Patient's daughter reported worsening memory improvement in the last 4-5 weeks. Currently patient is alert, awake and oriented to self. She is not oriented to time, situation, place. B12, folate, TSH within normal limits Plan: We will obtain MRI of the brain. (3) A-fib Current Visit: Yes Status: Acute Patient was found to have new onset atrial fibrillation. Currently she is anticoagulated with heparin gtt. Qualifiers: Atrial fibrillation type: chronic Qualified Code(s): I48.2 - Chronic atrial fibrillation History of Present Illness Chief complaint: Slurred speech HPI: Ms. Marshall is a 87 year old female presented with chief complaint of slurred speech. Patient was transferred from [facility]. During examination this morning patient was awake and alert eating breakfast. She was oriented to self. There was no family member present. Patient reports she is here for an "allergy". When asked if she had slurred speech she said maybe. The rest of the history was obtained from EMR. Patient was noticed to have slurred speech when she talked her nephew on the phone yesterday and 1 PM. Due to this EMS was called and patient was transferred to [facility]. At [facility] CT head was completed and was negative for bleeding or acute infarct. Patient was found to be in A. fib which she does not have a history of. She was then transferred to [facility] for further evaluation. Also as per EMR patient' s daughter reports that patient's memory has been poor for the last 4-5 weeks. Patient is able to answer questions this morning. She denies headache, double vision, blurry vision, changes in hearing, difficulty swallowing, numbness, tingling, weakness. Past Med Surg Social Fam HX - Past Medical History Medical history: hyperlipidemia, hypertension Psychiatric history: no psych history - Past Surgical History Surgical History: other - Social History Smoking Status: Never smoker Smokeless Tobacco Status: No Alcohol use: none Drug use: none - Family History Mother History Unknown: Yes Medications and Allergies Ascorbic Acid [Vitamin C] 1,000 mg PO DAILY 07/19/16 [History] Atenolol 100 mg PO DAILY 07/19/16 [History] Calcium Carbonate [Calcium] 600 mg PO DAILY 07/19/16 [History] Cholecalciferol (D-3) [Vitamin D] 2,000 unit PO DAILY 07/19/16 [History] Acetaminophen [Tylenol] 650 mg PO Q6HR PRN #0 tablet 07/22/16 [Rx] Potassium Chloride 10 meq PO DAILY #30 tab.er.prt 07/22/16 [Rx] Furosemide [Lasix] 20 mg PO DAILY 10/27/17 [History] Losartan Potassium [Cozaar] 100 mg PO DAILY 10/27/17 [History] 3 Allergy/AdvReac Type Severity Reaction Status Date / Time No Known Allergies Allergy Verified 07/19/16 07:21 All Systems: The remainder of the systems were reviewed and are negative Review of Systems: Constitutional: Denies fever, chills HEENT: Denies headache, vision changes, neck pain, sore throat, rhinorrhea Heart: Denies chest pain palpitations Lungs: Denies shortness of breath cough Abdomen: Denies abdominal pain nausea vomiting diarrhea Back: Denies back pain Kidney: Denies dysuria, hematuria Skin: Denies rash Extremities: Denies swelling, pain Neuro: As per history of present illness Physical Examination - Vital Signs Vital Signs: Initial Vital Signs Temp Pulse Resp BP Pulse Ox 97.4 F L 73 15 152/84 95 10/26/17 20:16 10/26/17 20:16 10/26/17 20:16 10/26/17 20:16 10/26/17 20:16 - Exam Exam: General: without distress, pleasant HEENT: Head atraumatic, normocephalic, EOMI, PERRL, neck nontender to palpation , absent lymphadenopathy, Moist Mucous Membranes, Heart: Irregularly irregular, tachycardic Lungs: Clear to auscultation bilaterally Abdomen: Soft nontender, nondistended positive bowel sounds Skin: warm and dry, absent rash Extremities: Absent pedal edema, Vascular: Pedal and radial pulses 2 out of 4 - Constitutional General appearance: comfortable - Neurologic Sensorimotor examination: pronator drift (Right) Motor examination - right side: 3/5: deltoids, biceps, triceps, capital campaign fundraiser, hip flexors, tibialis Anterior, toe extension (EHL), plantarflexion, 4/5: wrist flexion, wrist extension, quadriceps Motor examination - left side: 4/5: deltoids, triceps, wrist flexion, wrist extension, hip flexors, capital campaign fundraiser, tibialis Anterior, toe extension (EHL), plantarflexion, 5/5: biceps, quadriceps Detailed sensory examination: intact Reflex and gait examination: other (Gait not assessed.) Reflexes: Biceps: 2+, Triceps: 2+, Brachioradialis: 2+, Patella: 2+, Achilles: 2 + Mental Status Examination: awake, alert (Not oriented to time, place, situation, ), oriented to person, follows commands appropriately, answers questions appropriately, no agnosia, no aphasia, no aproxia, makes eye contact Cranial nerve examination: PERRL, EOMI, visual cassidy intact, sensory to face intact, mastication intact, no facial asymmetry is present, no dysarthria, hearing is intact symmetrically, soft palate elevates bilaterally upon phonation , flexes SCM and trapezius muscles symmetrically with full power, tongue protrudes midline Cerebellar examination: no dysmetria, performs finger to nose and heel to mae symmetrically without ataxia, no difficulty with rapid alternating movements Results - Laboratory Findings CBC and BMP: 10/26/17 22:17 10/26/17 22:17 Abnormal lab findings: Abnormal lab results RDW 14.7 % (11.5-14.5) H 10/26/17 22:17 PT 12.3 Seconds (9.4-12.1) H 10/26/17 22:16 APTT 126.5 Seconds (26.0-36.0) H* D 10/27/17 05:35 Heparin Anti-Xa, Unfract 0.79 IU/mL (0.30-0.70) H 10/27/17 05:35 Est GFR (Non-Af Amer) 54 (> 60) L 10/26/17 22:17 Glucose 129 mg/dL (70-105) H 10/26/17 22:17 LDL Cholesterol, Calc 106 mg/dL (0-99) H 10/27/17 05:35 HDL Cholesterol 60 mg/dL (40-59) H 10/27/17 05:35 Folate 21.9 ng/mL (3.0-16.0) H 10/27/17 05:35 Consult Discharge Plan - Plan Referrals: Brayden Ramirez MD [Primary Care Provider] -
[2017-10-27] MEDS: Aspirin 81 MG TAB.CHEW PO SCH (11:25)
--- NOTE | 2017-10-27 12:15 | Cardiology Consult Note ---
Date of Encounter: 10/27/17 Time of Encounter: 12:10 Assessment and Plan (1) A-fib Current Visit: Yes Status: Acute New diagnosis. Presented with slurred speech. Neurology following, head CT negative, MRI ordered to further evaluate for CVA. K, Mag and TSH within normal range. HR currently low 100s-120s. On Atenolol 100mg daily at home. Will give one time dose of IV cardizem 10mg bolus and start PO Cardizem CD 120mg daily. TTE 07/19/16 EF 60-65%, mild cLVH, no significant valvular dysfunction. Repeat TTE ordered by primary team. If pt does have TIA/CVA, her [id number] is 6 (Age, HTN, Female, TIA/CVA). Pt is a falls risk, but states she does not fall frequently. Given her high CVA risk, would recommend anticoagulation. Discussed Coumadin vs. NOACs, pt agreeable to either. Discussed with Dr. Cardenas, recommend NOAC. Will coto check and recommend starting when okay from neuro standpoint. Continue heparin gtt for now if okay with neuro. Qualifiers: Atrial fibrillation type: unspecified Qualified Code(s): I48.91 - Unspecified atrial fibrillation Discussion w patient/family: The assessment and plan as outlined above was discussed with the patient and/or family members who expressed understanding and agreement. All questions were answered. Thank you for involving us in the care of your patient. Please call with any questions. I will discuss all the above with Dr. Cardenas and make changes as necessary. History of Present Illness Consult date: 10/27/17 Requesting physician: Tiffani Bass Consult reason: New A-Fib Chief complaint: slurred speech History of present illness: Ms. Marshall is a 87 year old female with PMH HTN and HLD that presented with chief complaint of slurred speech. Patient was transferred from [facility]. Pt is oriented to person and place. When asked if she had slurred speech she said maybe. Most history was obtained from EMR. Patient was reported to have slurred speech while talking to her nephew on the phone yesterday and 1 PM. Due to this EMS was called and patient was transferred to [facility]. At [facility] CT head was negative. Patient was found to be in A. fib, presumably new. She was transferred to [facility]. Reportedly pt has had worsening memory issues over the past 4-5 weeks. Pt denies chest pain, dyspnea or palpitations. Denies cardiac hx. Currently on heparin gtt. Neurology following as well. 12 hr AVG HR 107, A- Fib. Past Med Surg Social Fam HX - Past Medical History Medical history: hyperlipidemia, hypertension Psychiatric history: no psych history - Past Surgical History Surgical History: other - Social History Smoking Status: Never smoker Smokeless Tobacco Status: No Alcohol use: none Drug use: none - Family History Mother History Unknown: Yes Medications and Allergies Ascorbic Acid [Vitamin C] 1,000 mg PO DAILY 07/19/16 [History] Atenolol 100 mg PO DAILY 07/19/16 [History] Calcium Carbonate [Calcium] 600 mg PO DAILY 07/19/16 [History] Cholecalciferol (D-3) [Vitamin D] 2,000 unit PO DAILY 07/19/16 [History] Acetaminophen [Tylenol] 650 mg PO Q6HR PRN #0 tablet 07/22/16 [Rx] Potassium Chloride 10 meq PO DAILY #30 tab.er.prt 07/22/16 [Rx] Furosemide [Lasix] 20 mg PO DAILY 10/27/17 [History] Losartan Potassium [Cozaar] 100 mg PO DAILY 10/27/17 [History] 3 Allergy/AdvReac Type Severity Reaction Status Date / Time No Known Allergies Allergy Verified 07/19/16 07:21 ROS unobtainable: due to mental status All Systems Review: The remainder of the systems were reviewed and are negative Physical Examination Vital Signs Temp Pulse Resp BP Pulse Ox 10/27/17 07:12 99 F 103 14 161/99 92 10/27/17 03:19 98.5 F 107 16 149/84 93 10/26/17 22:59 98.0 F 115 15 125/84 94 10/26/17 20:16 97.4 F L 73 15 152/84 95 Intake and Output 10/26/17 10/27/17 10/27/17 23:59 07:59 15:59 Intake Total 220 / 220 360 / 360 Output Total 150 / 150 Balance 220 / 220 210 / 210 Intake: IV Fluids 220 / 220 Heparin 25,000 UNIT/500 ML D5W 220 / 220 25,000 unit In 500 ml @ 14 UNIT /KG/HR 16.8 mls/hr IVC .Q24H [facility] Rx#:[id number] Oral 360 / 360 Output: Urine 150 / 150 Other: Meal Breakfast Percent of Meal Consumed 100% # Voids 1 1 Weight 60 kg 60.3 kg Patient Weight 10/27/17 23:59 Weight 60.3 kg General: Conversant, No Apparent Distress HEENT: Atraumatic, Normocephaly, Mucus Membranes Moist Neck: No JVD, Normal carotid pulses Cardiac: Other (irregularly irregular) Lungs: Normal Breath Sounds, No Wheeze, Rales, Rhonchi Neuro: Other (confused) Abdomen: Soft, Non-Tender Skin: No rashes noted on visualized skin Musculoskeletal: No Chest Wall Tenderness Extremities: No Clubbing, No Cyanosis, No Edema, Normal Pulses Results 10/26/17 22:17 10/26/17 22:17 Lab Results 10/26/17 10/26/17 10/26/17 22:16 22:17 22:17 WBC 10.9 Hgb 13.9 Hct 43.8 Plt Count 269 INR 1.1 APTT 28.1 Sodium 138 Potassium 4.4 Chloride 101 Carbon Dioxide 27 BUN 23 Creatinine 0.98 Glucose 129 H Calcium 10.0 Magnesium TSH 10/27/17 10/27/17 10/27/17 05:35 05:35 05:35 WBC Hgb Hct Plt Count INR APTT 126.5 H* D Sodium Potassium Chloride Carbon Dioxide BUN Creatinine Glucose Calcium Magnesium 1.9 TSH 2.298 Short CBC 10/26/17 Range/Units 22:17 WBC 10.9 (4.3-11.1) K/mcL Hgb 13.9 (11.5-15.4) g/dL Hct 43.8 (35.3-44.9) % Plt Count 269 (140-400) K/mcL Neutrophils # 8.0 (1.6-8.9) K/mcL BMP 10/26/17 Range/Units 22:17 Sodium 138 (136-145) mEq/L Potassium 4.4 (3.5-5.1) mEq/L Chloride 101 (98-107) mEq/L Carbon Dioxide 27 (23-29) mEq/L BUN 23 (8-23) mg/dL Creatinine 0.98 (0.60-1.20) mg/dL Glucose 129 H (70-105) mg/dL Calcium 10.0 (8.6-10.3) mg/dL Active Medications Acetaminophen (Tylenol) 650 mg PO Q6HR PRN PRN Reason: Mild Pain/Fever Stop: 04/27/18 22:14 Ascorbic Acid (Vitamin C) 1,000 mg PO DAILY TE Stop: 04/28/18 09:01 Last Admin: 10/27/17 07:48 Dose: 1,000 mg Aspirin (Aspirin) 81 mg PO DAILY TE Stop: 04/28/18 10:46 Last Admin: 10/27/17 11:25 Dose: 81 mg Atenolol (Tenormin) 100 mg PO DAILY TE Stop: 04/28/18 09:01 Last Admin: 10/27/17 07:48 Dose: 100 mg Atorvastatin Calcium (Lipitor) 40 mg PO HS TE Stop: 04/28/18 21:01 Calcium Carbonate (Tums) 500 mg PO DAILY TE Stop: 04/28/18 09:01 Last Admin: 10/27/17 07:48 Dose: 500 mg Furosemide (Lasix) 20 mg PO BIDDIURETIC TE Stop: 04/28/18 08:01 Last Admin: 10/27/17 07:49 Dose: 20 mg HCTZ/Losartan Potassium (Hyzaar 50/12.5) 1 each PO DAILY TE Stop: 04/28/18 09:01 Last Admin: 10/27/17 07:49 Dose: 1 each Heparin Sodium (Porcine) (Heparin) 4,200 unit 70 unit/kg (4200 unit) IVP Q6HR PRN PRN Reason: SEE COMMENTS Stop: 04/27/18 22:17 Heparin Sodium (Porcine) (Heparin) 2,100 unit 35 unit/kg (2100 unit) IVP Q6H PRN PRN Reason: SEE COMMENTS Stop: 04/27/18 22:17 Heparin Sodium/Dextrose (Heparin 25,000 Unit/500 Ml D5w) 25,000 unit in 500 mls @ 16.8 mls/hr IVC .Q24H TE; 14 UNIT/KG/HR PRN Reason: Protocol Stop: 04/27/18 22:31 Last Titration: 10/27/17 07:49 Dose: 12.8 unit/kg/hr, 15.36 mls/hr Naloxone HCl (Narcan) 0.4 mg IVP Q2MIN PRN PRN Reason: SEE COMMENTS Stop: 04/27/18 22:14 Vitamin D (Vitamin D) 1,000 unit PO DAILY TE Stop: 04/28/18 09:01 Last Admin: 10/27/17 07:49 Dose: 1,000 unit - Imaging and Cardiology Echo: report reviewed - EKG Interpretation EKG results cardiology: other (12 hr tele AVG HR 107, A-Fib) Consult Discharge Plan - Plan Referrals: Brayden Ramirez MD [Primary Care Provider] -
[2017-10-27] MEDS: Diltiazem CD (24hr) 120 MG CAPSULE PO SCH (14:00)
--- NOTE | 2017-10-27 16:59 | Internal Med Progress Note ---
Date of Encounter: 10/27/17 Time of Encounter: 16:56 - Assessment and plan (1) CVA (cerebral vascular accident) Current Visit: Yes Status: Suspected Assessment and plan: presented with confusion and slurred speech. Head CT nonacute. Brain MRI with multiple areas of acute infarct within the medial left occipital lobe and tiny area of acute infarct within the medial left posterior parietal lobe; no evidence of intracranial hemorrhage. Remains confused otherwise neurologically intact. Evaluated by neurology who suspect embolic source secondary to A. fib and also recommending long-term anticoagulation. Carotid Doppler, the cardiogram pending. Continue ASA, heparin drip for now. Will need to determine long-term anticoagulation once final disposition determined. Neurology following. Qualifiers: CVA mechanism: unspecified Qualified Code(s): I63.9 - Cerebral infarction, unspecified (2) A-fib Current Visit: Yes Status: Acute Assessment and plan: found A. fib at OSH; no known history of A. fib. Initially rate controlled with heart rates up to the 120s. Evaluated by cardiology who ordered 1 time dose IV Cardizem followed by PO Cardizem. Per Cardiology, [id number] is 6 (Age, HTN, Female, TIA/CVA) and considered high CVA risk, therefore anticoagulation recommended. Continue heparin drip for now. Will need to discuss long-term anticoagulation options once a completed and disposition comments. Heart rate better controlled after diltiazem. Continue home BB, CCB, heparin drip. Qualifiers: Atrial fibrillation type: unspecified Qualified Code(s): I48.91 - Unspecified atrial fibrillation (3) Hypertension Current Visit: No Status: Chronic Assessment and plan: We will continue home medications. Qualifiers: Hypertension type: essential hypertension Qualified Code(s): I10 - Essential (primary) hypertension (4) Hyperlipidemia Current Visit: No Status: Chronic Assessment and plan: Patient is not on any medication at home at this point. We will check lipid panel. Qualifiers: Hyperlipidemia type: mixed hyperlipidemia Qualified Code(s): E78.2 - Mixed hyperlipidemia (5) Dementia Current Visit: No Status: Acute Assessment and plan: per hx. with increased confusion secondary to acute CVA. Will likely need SNF at discharge. Supportive care. Qualifiers: Dementia type: unspecified type Dementia behavioral disturbance: without behavioral disturbance Qualified Code(s): F03.90 - Unspecified dementia without behavioral disturbance (6) DVT prophylaxis Current Visit: No Status: Acute Assessment and plan: heparin gtt - Time Spent With Patient Total time spent is greater than 50% in coordination of care (as documented) at patient's floor/unit and/or counseling patient: - Subjective Interval history: Seen and examined at bedside. Patient is new to me, information obtained from chart review and patient report patient is alert to self only and is poor historian. No family at bedside for collateral. - Constitutional Vitals: Temp Pulse Resp BP Pulse Ox 97.6 F 80 16 160/90 95 10/27/17 15:19 10/27/17 15:19 10/27/17 15:19 10/27/17 15:19 10/27/17 15:19 General appearance: Present: A&O X 1, pleasant, no acute distress, answers questions appropriately - Head Head exam: Present: atraumatic, normocephalic - Eye Eye exam: Present: PERRL, conjuntiva pink, sclera anicteric Pupils: Present: PERRL - Neck Neck exam general surgery: Present: supple, trachea midline. Absent: lymphadenopathy - Respiratory Respiratory exam: Present: CTAB. Absent: accessory muscle use, rales, rhonchi, wheezes - Cardiovascular Cardiovascular exam: Present: RRR, +S1, +S2. Absent: diastolic murmur, gallop, rubs, systolic murmur - GI/Abdominal GI/Abdominal exam: Present: normal bowel sounds, soft, no peritoneal signs. Absent: distended, tenderness - Extremities Exam Extremities exam: Present: warm, radial pulses palpable and symmetrical. Absent : calf tenderness, cyanotic, pedal edema - Neurological Exam Neurological exam: Present: CN II-XII intact, no focal deficits. Absent: pronater drift, facial droop, speech deficit - Skin Skin exam: Present: dry, intact Internal Medicine: Result - Labs CBC & Chem 7: 10/26/17 22:17 10/26/17 22:17 Labs: Short CBC 10/26/17 Range/Units 22:17 WBC 10.9 (4.3-11.1) K/mcL Hgb 13.9 (11.5-15.4) g/dL Hct 43.8 (35.3-44.9) % Plt Count 269 (140-400) K/mcL Neutrophils # 8.0 (1.6-8.9) K/mcL BMP 10/26/17 22:17 Sodium 138 Potassium 4.4 Chloride 101 Carbon Dioxide 27 BUN 23 Creatinine 0.98 Glucose 129 H Calcium 10.0 - ABG Interpretation ABG results: PT/INR, D-dimer PT 12.3 Seconds (9.4-12.1) H 10/26/17 22:16 - Impressions Impressions Brain MRI 10/27/17 10:36 IMPRESSION: Multiple areas of acute infarcts within medial left occipital lobe, in the left posterior cerebral artery distribution. Tiny additional area of acute infarct within the medial left posterior parietal lobe. No evidence of intracranial hemorrhage. Chronic small vessel ischemic white matter disease and cerebral volume loss. The findings were sent to the Radiology Results Communication Center at 1:47 pm on 10/27/2017to be communicated to a licensed caregiver. D/ /27/2017 13:55:10 Morgan Tripathi MD / christopher Interpreting Provider: Morgan Tripathi MD Consult Discharge Plan - Plan Referrals: Brayden Ramirez MD [Primary Care Provider] -
[2017-10-27] MEDS: Heparin 25,000 UNIT/500 ML D5W 25,000 UNIT/500 ML BAG IVC SCH (22:29)
[2017-10-28 06:51] LABS: Activated Partial Thrombo Time 119.3 Seconds (26.0-36.0)
[2017-10-28 07:19] LABS: Heparin anti-factor XA UFH 0.76 IU/mL (0.30-0.70)
[2017-10-28] MEDS: Aspirin 81 MG TAB.CHEW PO SCH (07:37)
[2017-10-28] MEDS: Cholecalciferol (D-3) 1,000 UNIT TABLET PO SCH (07:37)
[2017-10-28] MEDS: Furosemide 20 MG TABLET PO SCH ×2 (07:37→15:59)
[2017-10-28] MEDS: Ascorbic Acid 500 MG TABLET PO SCH (07:37)
[2017-10-28] MEDS: Losartan/HCTZ 50-12.5 TABLET PO SCH (07:37)
[2017-10-28] MEDS: Diltiazem CD (24hr) 120 MG CAPSULE PO SCH (07:37)
[2017-10-28] MEDS: Heparin 25,000 UNIT/500 ML D5W 25,000 UNIT/500 ML BAG IVC SCH (07:56)
[2017-10-28] MEDS ORDERED: Diltiazem SR (12hr) 60 MG CAPSULE PO ONE (08:47)
[2017-10-28] MEDS ORDERED: Diltiazem CD (24hr) 120 MG CAPSULE PO SCH (09:00)
--- NOTE | 2017-10-28 09:28 | Cardiology Progress Note ---
Date of Encounter: 10/28/17 Time of Encounter: 09:26 Assessment and Plan (1) A-fib Current Visit: Yes Status: Acute New diagnosis in setting of CVA. MRI shows multiple areas of acute infarcts within medial left occipital lobe, in the left posterior cerebral artery distribution. Tiny additional area of acute infarct within the medial left posterior parietal lobe. No evidence of intracranial hemorrhage. K, Mag and TSH within normal range. HR now controlled. 12 hr tele AVG HR 94. On Atenolol 100mg daily and Cardizem CD 120mg daily--increase Cardizem to 180mg daily. TTE EF 50-55%, mild-moderate MR. [id number] is 6 (Age, HTN, Female,CVA). Currently on heparin gtt. Pt is a falls risk, but states she does not fall frequently. Given her high recurrent CVA risk , recommend chronic anticoagulation. Discussed Coumadin vs. NOACs, pt agreeable to either. Coto check on Eliquis--$43/month. Reduced dosing 2.5mg BID given pt' s age of >79 and weighs <60kg. Discussed with neurology, okay to start not. Will start Eliquis and stop heparin gtt. Cardiology signing off. Reconsult PRN. Qualifiers: Atrial fibrillation type: unspecified Qualified Code(s): I48.91 - Unspecified atrial fibrillation (2) CVA (cerebral vascular accident) Current Visit: Yes Status: Acute Neurology following, confirmed CVA on brain MRI, likely embolic secondary to A- Fib. Currently on heparin gtt, will start Eliquis 2.5mg BID for senior living anticoagulation to decrease risk of recurrent embolic events. Qualifiers: CVA mechanism: unspecified Qualified Code(s): I63.9 - Cerebral infarction, unspecified Discussion w patient/family: The assessment and plan as outlined above was discussed with the patient and/or family members who expressed understanding and agreement. All questions were answered. Thank you for involving us in the care of your patient. Please call with any questions. I will discuss all the above with Dr. Cardenas and make changes as necessary. Subjective Principal diagnosis: CVA, A-Fib Interval history: A-Fib is better rate controlled--12 hr tele AVG HR 94. Pt confused, but denies acute complaints. Brain MRI showed multiple areas of acute infarcts within medial left occipital lobe, in the left posterior cerebral artery distribution. Tiny additional area of acute infarct within the medial left posterior parietal lobe. No evidence of intracranial hemorrhage. Cycell coto check $43/ month. TTE EF 50-55%, mild-moderate MR. Objective Vital Signs, Last 4 Hours Temp Pulse Resp BP Pulse Ox 10/28/17 07:26 98.3 F 87 15 122/78 96 Vital Signs Temp Pulse Resp BP Pulse Ox 10/28/17 07:26 98.3 F 87 15 122/78 96 10/28/17 03:07 97.9 F 99 16 132/82 94 10/27/17 23:54 98.9 F 97 16 119/69 94 10/27/17 18:35 97.6 F 88 16 134/78 96 10/27/17 15:19 97.6 F 80 16 160/90 95 Intake and Output 10/27/17 10/28/17 10/28/17 23:59 07:59 15:59 Intake Total 93 / 93 149 / 149 360 / 360 Output Total 300 / 300 Balance -207 / -207 149 / 149 360 / 360 Intake: IV Fluids / 149 / 149 Heparin 25,000 UNIT/500 ML D5W / 149 / 149 25,000 unit In 500 ml @ 14 UNIT /KG/HR 16.8 mls/hr IVC .Q24H [facility] Rx#:[id number] Oral 360 / 360 Output: Urine 300 / 300 Other: Meal Breakfast Percent of Meal Consumed 100% # Voids 1 Weight 57.5 kg Patient Weight 10/28/17 23:59 Weight 57.5 kg General: Conversant, No Apparent Distress HEENT: Atraumatic, Normocephaly, Mucus Membranes Moist Neck: No JVD, Normal carotid pulses Cardiac: Other (irregularly irregular) Lungs: Normal Breath Sounds, No Wheeze, Rales, Rhonchi Neuro: Other (confused) Abdomen: Soft, Non-Tender Skin: No rashes noted on visualized skin Musculoskeletal: No Chest Wall Tenderness Extremities: No Clubbing, No Cyanosis, No Edema, Normal Pulses Results 10/26/17 22:17 10/26/17 22:17 Lab Results 10/27/17 10/27/17 10/28/17 12:44 19:38 05:45 APTT 58.4 H D 33.8 119.3 H* D Impressions Echocardiogram 10/26/17 22:17 Impressions: LVEF 50-55%. Indeterminate diastolic function. Normal right ventricular structure and function. Mild-moderate mitral regurgitation. Mild tricuspid regurgitation. Mild pulmonary hypertension. Left Ventricular Wall Motion: Rest Echo Findings All wall segments showed normal motion. Findings: Study Quality * Technically adequate exam. ECG Findings * Atrial fibrillation. Left Ventricle * LVEF 50-55%. * Indeterminate diastolic function. * Normal LV chamber size and wall thickness. Right Ventricle * Normal right ventricular structure and function. Left Atrium * Severely dilated left atrium. Right Atrium * Moderately dilated right atrium. Aortic Valve * No aortic regurgitation. * Trileaflet aortic valve. * No aortic stenosis. Mitral Valve * Mild mitral annular calcification * No mitral stenosis. * Mild-moderate mitral regurgitation. Tricuspid Valve * Mild tricuspid regurgitation. * Normal tricuspid valve structure. * Mild pulmonary hypertension. * Estimated RA pressure is 8 mmHg. * Estimated RVSP is 43 mmHg. Pulmonic Valve * Pulmonic valve is not well visualized. * No pulmonic stenosis. * No pulmonic regurgitation. Pulmonary Artery * Pulmonary artery not well visualized. Aorta * Normally sized aortic root. * Ascending aorta not well visualized. Pericardium * There is no pericardial effusion present. Interatrial Septum * No evidence of PFO by color Doppler. IVC * The IVC is not dilated. * < 50% respiratory change. Brain MRI 10/27/17 10:36 IMPRESSION: Multiple areas of acute infarcts within medial left occipital lobe, in the left posterior cerebral artery distribution. Tiny additional area of acute infarct within the medial left posterior parietal lobe. No evidence of intracranial hemorrhage. Chronic small vessel ischemic white matter disease and cerebral volume loss. The findings were sent to the Radiology Results Communication Center at 1:47 pm on 10/27/2017to be communicated to a licensed caregiver. D/ /27/2017 13:55:10 Morgan Tripathi MD / christopher Interpreting Provider: Morgan Tripathi MD Active Medications Acetaminophen (Tylenol) 650 mg PO Q6HR PRN PRN Reason: Mild Pain/Fever Stop: 04/27/18 22:14 Ascorbic Acid (Vitamin C) 1,000 mg PO DAILY TE Stop: 04/28/18 09:01 Last Admin: 10/28/17 07:37 Dose: 1,000 mg Aspirin (Aspirin) 81 mg PO DAILY [facility] Stop: 04/28/18 10:46 Last Admin: 10/28/17 07:37 Dose: 81 mg Atenolol (Tenormin) 100 mg PO DAILY TE Stop: 04/28/18 09:01 Last Admin: 10/28/17 07:36 Dose: 100 mg Atorvastatin Calcium (Lipitor) 40 mg PO HS TE Stop: 04/28/18 21:01 Last Admin: 10/27/17 21:35 Dose: 40 mg Calcium Carbonate (Tums) 500 mg PO DAILY TE Stop: 04/28/18 09:01 Last Admin: 10/28/17 07:37 Dose: 500 mg Diltiazem HCl (Cardizem Cd) 180 mg PO DAILY TE Stop: 04/30/18 09:01 Furosemide (Lasix) 20 mg PO BIDDIURETIC TE Stop: 04/28/18 08:01 Last Admin: 10/28/17 07:37 Dose: 20 mg HCTZ/Losartan Potassium (Hyzaar 50/12.5) 1 each PO DAILY TE Stop: 04/28/18 09:01 Last Admin: 10/28/17 07:37 Dose: 1 each Heparin Sodium (Porcine) (Heparin) 4,200 unit 70 unit/kg (4200 unit) IVP Q6HR PRN PRN Reason: SEE COMMENTS Stop: 04/27/18 22:17 Last Admin: 10/27/17 22:32 Dose: 4,200 unit Heparin Sodium (Porcine) (Heparin) 2,100 unit 35 unit/kg (2100 unit) IVP Q6H PRN PRN Reason: SEE COMMENTS Stop: 04/27/18 22:17 Hydralazine HCl (Hydralazine) 10 mg IVP Q6HR PRN PRN Reason: Hypertension Stop: 04/28/18 17:05 Heparin Sodium/Dextrose (Heparin 25,000 Unit/500 Ml D5w) 25,000 unit in 500 mls @ 16.8 mls/hr IVC .Q24H TE; 14 UNIT/KG/HR PRN Reason: Protocol Stop: 04/27/18 22:31 Last Admin: 10/28/17 07:56 Dose: 14.83 unit/kg/hr, 17.796 mls/hr Naloxone HCl (Narcan) 0.4 mg IVP Q2MIN PRN PRN Reason: SEE COMMENTS Stop: 04/27/18 22:14 Vitamin D (Vitamin D) 1,000 unit PO DAILY TE Stop: 04/28/18 09:01 Last Admin: 10/28/17 07:37 Dose: 1,000 unit - Imaging and Cardiology Echo: report reviewed - EKG Interpretation EKG results cardiology: other (12 hr tele AVG HR 94, A-Fib) Consult Discharge Plan - Plan Referrals: Brayden Ramirez MD [Primary Care Provider] - 11/11/17 2:45 pm Nathaniel Hemphill DO [Partnered Physician] - 11/09/17 12:15 pm
[2017-10-28 11:00] LABS: Hematocrit 40.9 % (35.3-44.9); Hemoglobin 13.5 g/dL (11.5-15.4); Mean Corpuscular Hemoglobin 29.2 pg (28.0-33.3); Mean Corpuscular Volume 88.3 fL (83.0-100.0); Mean Platelet Volume 10.4 fL (9.4-12.4); Platelet Count 280 K/mcL (140-400); Red Blood Count 4.63 M/mcL (3.82-4.97)
[2017-10-28 11:32] LABS: Calcium 9.5 mg/dL (8.6-10.3); Potassium 3.1 mEq/L (3.5-5.1)
[2017-10-28] MEDS: Apixaban 5 MG TABLET PO SCH ×2 (11:39→20:33)
--- NOTE | 2017-10-28 12:43 | Neurology Progress Note ---
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 Currently on eliquis. Mental status is improving and no significant neurological deficit, except mild right pronator drift. Stroke work up completed. Agree with prison anticoagulation therapy due to new found atrial fibrillation. Agree with aspirin 81mg daily. PT. Will sign off at this time. 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 She is feeling fine. Less confused and has no focal neurological deficits other than she feels a little weak. Able to walk without assistance. Her speech is fluent. She still does not know what year is this but know where she is and where she lives. She is started on eliquis for treatment of Atrial fibrillation. Objective - Constitutional Vitals: Temp Pulse Resp BP Pulse Ox 97.9 F 83 15 114/73 95 10/28/17 12:11 10/28/17 12:11 10/28/17 12:11 10/28/17 12:11 10/28/17 12:11 - Neurological Exam Sensorimotor examination: Present: pronator drift (Right, but improved) Motor examination - right side: 5/5: deltoids, biceps, triceps, wrist flexion, wrist extension, air traffic coordinator, hip flexors, tibialis Anterior, quadriceps, toe extension (EHL), plantarflexion Motor examination - left side: 5/5: deltoids, biceps, triceps, wrist flexion, wrist extension, hip flexors, air traffic coordinator, quadriceps, tibialis Anterior, toe extension (EHL), plantarflexion Sensation intact: Present: intact Reflex and gait examination: other (Gait not assessed.) Reflexes: Biceps: 2+, Triceps: 2+, Brachioradialis: 2+, Patella: 2+, Achilles: 2 + Mental Status Examination: Present: awake, alert (Not oriented to time, place, situation,), oriented to person, oriented to place, follows commands appropriately, answers questions appropriately, no agnosia, no aphasia, no aproxia, lucid, makes eye contact Cranial nerve examination: Present: PERRL, EOMI, visual cassidy intact, sensory to face intact, mastication intact, no facial asymmetry is present, no dysarthria, hearing is intact symmetrically, soft palate elevates bilaterally upon phonation, flexes SCM and trapezius muscles symmetrically with full power, tongue protrudes midline Cerebellar examination: Present: no dysmetria, performs finger to nose and heel to mae symmetrically without ataxia, no difficulty with rapid alternating movements Results - Laboratory Findings CBC and BMP: 10/28/17 10:05 10/28/17 10:05 Abnormal lab findings: Abnormal lab results RDW 15.0 % (11.5-14.5) H 10/28/17 10:05 PT 12.3 Seconds (9.4-12.1) H 10/26/17 22:16 APTT 119.3 Seconds (26.0-36.0) H* D 10/28/17 05:45 Heparin Anti-Xa, Unfract 0.76 IU/mL (0.30-0.70) H 10/28/17 05:45 Potassium 3.1 mEq/L (3.5-5.1) L 10/28/17 10:05 Carbon Dioxide 31 mEq/L (23-29) H 10/28/17 10:05 BUN 25 mg/dL (8-23) H 10/28/17 10:05 Est GFR ( Amer) 55 (> 60) L 10/28/17 10:05 Est GFR (Non-Af Amer) 45 (> 60) L 10/28/17 10:05 Glucose 139 mg/dL (70-105) H 10/28/17 10:05 LDL Cholesterol, Calc 106 mg/dL (0-99) H 10/27/17 05:35 HDL Cholesterol 60 mg/dL (40-59) H 10/27/17 05:35 Folate 21.9 ng/mL (3.0-16.0) H 10/27/17 05:35 - Diagnostic Findings Additional findings: Impressions: The right carotid artery has minimal plaque throughout. The left carotid artery is normal in visualized vessels. Technically limited study: The distal left internal carotid artery is not clearly visualized. Recommendations: Risk factor reduction. Consider further imaging with MR or CT angiogram if clinically indicated. Findings Carotid Duplex: Right: There is nonstenotic plaque in the right proximal internal carotid artery. Left: The left distal internal carotid artery was not well visualized. Prior Study: No prior study available for comparison. V/EV echocardiogram Impressions: LVEF 50-55%. Indeterminate diastolic function. Normal right ventricular structure and function. Mild-moderate mitral regurgitation. Mild tricuspid regurgitation. Mild pulmonary hypertension. Consult Discharge Plan - Plan Referrals: Brayden Ramirez MD [Primary Care Provider] - 11/11/17 2:45 pm Nathaniel Hemphill DO [Partnered Physician] - 11/09/17 12:15 pm
--- NOTE | 2017-10-28 15:35 | Internal Med Progress Note ---
Date of Encounter: 10/28/17 Time of Encounter: 15:32 - Assessment and plan (1) CVA (cerebral vascular accident) Current Visit: Yes Status: Acute Assessment and plan: presented with confusion and slurred speech. Head CT nonacute. Brain MRI with multiple areas of acute infarct within the medial left occipital lobe and tiny area of acute infarct within the medial left posterior parietal lobe; no evidence of intracranial hemorrhage. TTE with EF 50%, mild mitral/tricuspid regurgitation, no evidence of PFO. Bilateral carotid Dopplers with small nonstenotic plaque to right ICA and normal left ICA. Remains confused otherwise neurologically intact. Evaluated by neurology who suspect embolic source secondary to A. fib and also recommending long-term anticoagulation. Cont Eliquis, ASA, statin. 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 fib at OSH; no known history of A. fib. Initially rate controlled with heart rates up to the 120s. Evaluated by cardiology who ordered 1 time dose IV Cardizem followed by PO Cardizem. Per Cardiology, [id number] is 6 (Age, HTN, Female, TIA/CVA) and considered high CVA risk, therefore anticoagulation recommended. Cont eliquis, BB, CCB Qualifiers: Atrial fibrillation type: chronic Qualified Code(s): I48.2 - Chronic atrial fibrillation (3) Hypertension Current Visit: No Status: Chronic Assessment and plan: We will continue home medications. Qualifiers: Hypertension type: essential hypertension Qualified Code(s): I10 - Essential (primary) hypertension (4) Hyperlipidemia Current Visit: No Status: Chronic Assessment and plan: Patient is not on any medication at home at this point. We will check lipid panel. Qualifiers: Hyperlipidemia type: mixed hyperlipidemia Qualified Code(s): E78.2 - Mixed hyperlipidemia (5) Dementia Current Visit: No Status: Acute Assessment and plan: per hx. with increased confusion secondary to acute CVA. Will likely need SNF at discharge. Supportive care. Qualifiers: Dementia type: unspecified type Dementia behavioral disturbance: without behavioral disturbance Qualified Code(s): F03.90 - Unspecified dementia without behavioral disturbance (6) DVT prophylaxis Current Visit: No Status: Acute Assessment and plan: eliquis - Time Spent With Patient Total time spent is greater than 50% in coordination of care (as documented) at patient's floor/unit and/or counseling patient: - Subjective Interval history: Seen and examined at bedside; sitting up in chair at bedside. She is alert to self and a poor historian. Able to answer some questions clearly. Daughter and son updated on plan for SNF at discharge. - Constitutional Vitals: Temp Pulse Resp BP Pulse Ox 98.2 F 83 16 128/75 94 10/28/17 15:08 10/28/17 15:08 10/28/17 15:08 10/28/17 15:08 10/28/17 15:08 General appearance: Present: A&O X 1, pleasant, no acute distress, answers questions appropriately - Head Head exam: Present: atraumatic, normocephalic - Eye Eye exam: Present: PERRL, conjuntiva pink, sclera anicteric Pupils: Present: PERRL - Neck Neck exam general surgery: Present: supple, trachea midline. Absent: lymphadenopathy - Respiratory Respiratory exam: Present: CTAB. Absent: accessory muscle use, rales, rhonchi, wheezes - Cardiovascular Cardiovascular exam: Present: RRR, +S1, +S2. Absent: diastolic murmur, gallop, rubs, systolic murmur - GI/Abdominal GI/Abdominal exam: Present: normal bowel sounds, soft, no peritoneal signs. Absent: distended, tenderness - Extremities Exam Extremities exam: Present: warm, radial pulses palpable and symmetrical. Absent : calf tenderness, cyanotic, pedal edema - Neurological Exam Neurological exam: Present: CN II-XII intact, no focal deficits. Absent: pronater drift, facial droop, speech deficit - Skin Skin exam: Present: dry, intact Internal Medicine: Result - Labs CBC & Chem 7: 10/28/17 10:05 10/28/17 10:05 Labs: Short CBC 10/28/17 Range/Units 10:05 WBC 9.9 (4.3-11.1) K/mcL Hgb 13.5 (11.5-15.4) g/dL Hct 40.9 (35.3-44.9) % Plt Count 280 (140-400) K/mcL BMP 10/28/17 10:05 Sodium 139 Potassium 3.1 L Chloride 100 Carbon Dioxide 31 H BUN 25 H Creatinine 1.13 Glucose 139 H Calcium 9.5 - ABG Interpretation ABG results: PT/INR, D-dimer PT 12.3 Seconds (9.4-12.1) H 10/26/17 22:16 - Impressions Impressions Echocardiogram 10/26/17 22:17 Impressions: LVEF 50-55%. Indeterminate diastolic function. Normal right ventricular structure and function. Mild-moderate mitral regurgitation. Mild tricuspid regurgitation. Mild pulmonary hypertension. Left Ventricular Wall Motion: Rest Echo Findings All wall segments showed normal motion. Findings: Study Quality * Technically adequate exam. ECG Findings * Atrial fibrillation. Left Ventricle * LVEF 50-55%. * Indeterminate diastolic function. * Normal LV chamber size and wall thickness. Right Ventricle * Normal right ventricular structure and function. Left Atrium * Severely dilated left atrium. Right Atrium * Moderately dilated right atrium. Aortic Valve * No aortic regurgitation. * Trileaflet aortic valve. * No aortic stenosis. Mitral Valve * Mild mitral annular calcification * No mitral stenosis. * Mild-moderate mitral regurgitation. Tricuspid Valve * Mild tricuspid regurgitation. * Normal tricuspid valve structure. * Mild pulmonary hypertension. * Estimated RA pressure is 8 mmHg. * Estimated RVSP is 43 mmHg. Pulmonic Valve * Pulmonic valve is not well visualized. * No pulmonic stenosis. * No pulmonic regurgitation. Pulmonary Artery * Pulmonary artery not well visualized. Aorta * Normally sized aortic root. * Ascending aorta not well visualized. Pericardium * There is no pericardial effusion present. Interatrial Septum * No evidence of PFO by color Doppler. IVC * The IVC is not dilated. * < 50% respiratory change. Brain MRI 10/27/17 10:36 IMPRESSION: 1. Multiple areas of acute infarcts within medial left occipital lobe, in the left posterior cerebral artery distribution. Tiny additional area of acute infarct within the medial left posterior parietal lobe. No evidence of intracranial hemorrhage. 2. Chronic small vessel ischemic white matter disease and cerebral volume loss. The findings were sent to the [facility] at 1:47 pm on 10/27/2017to be communicated to a licensed caregiver. D/ /27/2017 13:55:10 Morgan Tripathi MD / christopher Interpreting Provider: Morgan Tripathi MD Ankle X-Ray 10/28/17 09:53 IMPRESSION: 1. Punctate calcification at the distal tip of the fibula suspicious for an avulsion injury. There is overlying soft tissue swelling. 2. Soft tissue swelling the foot dorsum with no associated acute osseous abnormality. 3. Mild to moderate 1st MTP degenerative changes. D/ / Isac Montilla MD / Isac Montilla MD Interpreting Provider: Isac Montilla MD Foot X-Ray 10/28/17 09:53 IMPRESSION: 1. Punctate calcification at the distal tip of the fibula suspicious for an avulsion injury. There is overlying soft tissue swelling. 2. Soft tissue swelling the foot dorsum with no associated acute osseous abnormality. 3. Mild to moderate 1st MTP degenerative changes. D/ / Isac Montilla MD / Isac Montilla MD Interpreting Provider: Isac Montilla MD Consult Discharge Plan - Plan Referrals: rBayden Ramirez MD [Primary Care Provider] - 11/11/17 2:45 pm Nathaniel Hemphill DO [Partnered Physician] - 11/09/17 12:15 pm
[2017-10-29 06:35] LABS: Hemoglobin 13.1 g/dL (11.5-15.4); Mean Corpuscular HGB Conc 32.8 g/dL (31.6-35.5); Mean Corpuscular Hemoglobin 28.5 pg (28.0-33.3); Mean Corpuscular Volume 87.1 fL (83.0-100.0); Platelet Count 264 K/mcL (140-400); Red Blood Count 4.59 M/mcL (3.82-4.97); Red Cell Distribution Width 14.8 % (11.5-14.5)
[2017-10-29 06:54] LABS: BUN/Creatinine Ratio 24 (6-26); Blood Urea Nitrogen 22 mg/dL (8-23); Calcium 9.2 mg/dL (8.6-10.3); Carbon Dioxide 26 mEq/L (23-29); Chloride 103 mEq/L (98-107); Glucose 109 mg/dL (70-105); Osmolality,Calculated 292 (280-300); Potassium 3.2 mEq/L (3.5-5.1); Sodium 139 mEq/L (136-145); eGFR For African Americans > 60 (> 60); eGFR For Non-African Americans 59 (> 60)
[2017-10-29] MEDS: Apixaban 5 MG TABLET PO SCH ×2 (07:50→20:32)
[2017-10-29] MEDS: Losartan/HCTZ 50-12.5 TABLET PO SCH (07:50)
[2017-10-29] MEDS: Aspirin 81 MG TAB.CHEW PO SCH (07:50)
[2017-10-29] MEDS: Furosemide 20 MG TABLET PO SCH ×2 (07:50→17:14)
[2017-10-29] MEDS: Diltiazem CD (24hr) 180 MG CAPSULE PO SCH (07:50)
[2017-10-29] MEDS: Ascorbic Acid 500 MG TABLET PO SCH (07:51)
[2017-10-29] MEDS: Cholecalciferol (D-3) 1,000 UNIT TABLET PO SCH (07:51)
--- NOTE | 2017-10-29 16:48 | Internal Med Progress Note ---
Date of Encounter: 10/29/17 Time of Encounter: 16:45 - Assessment and plan (1) CVA (cerebral vascular accident) Current Visit: Yes Status: Acute Assessment and plan: presented with confusion and slurred speech. Head CT nonacute. Brain MRI with multiple areas of acute infarct within the medial left occipital lobe and tiny area of acute infarct within the medial left posterior parietal lobe; no evidence of intracranial hemorrhage. TTE with EF 50%, mild mitral/tricuspid regurgitation, no evidence of PFO. Bilateral carotid Dopplers with small nonstenotic plaque to right ICA and normal left ICA. Remains confused otherwise neurologically intact. Evaluated by neurology who suspect embolic source secondary to A. fib and also recommending long-term anticoagulation. Cont Eliquis, ASA, statin. Evaluated by PT/OT who is recommending SNF. log raft worker assisting with placement. 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 fib at OSH; no known history of A. fib. Initially rate controlled with heart rates up to the 120s. Evaluated by cardiology who ordered 1 time dose IV Cardizem followed by PO Cardizem. Per Cardiology, [id number] is 6 (Age, HTN, Female, TIA/CVA) and considered high CVA risk, therefore anticoagulation recommended. Cont eliquis, BB, CCB Qualifiers: Atrial fibrillation type: chronic Qualified Code(s): I48.2 - Chronic atrial fibrillation (3) Avulsion fracture of distal fibula Current Visit: Yes Status: Acute Assessment and plan: Right ankle with swelling and resolving ecchymosis. Right ankle x-ray shows possible avulsion injury to the distal fibula with overlying soft tissue swelling. Supportive care with compression wraps, or so consulted (4) Hypertension Current Visit: No Status: Chronic Assessment and plan: We will continue home medications. Qualifiers: Hypertension type: essential hypertension Qualified Code(s): I10 - Essential (primary) hypertension (5) Hyperlipidemia Current Visit: No Status: Chronic Assessment and plan: Patient is not on any medication at home at this point. We will check lipid panel. Qualifiers: Hyperlipidemia type: mixed hyperlipidemia Qualified Code(s): E78.2 - Mixed hyperlipidemia (6) Dementia Current Visit: No Status: Acute Assessment and plan: per hx. with increased confusion secondary to acute CVA. Will likely need SNF at discharge. Supportive care. Qualifiers: Dementia type: unspecified type Dementia behavioral disturbance: without behavioral disturbance Qualified Code(s): F03.90 - Unspecified dementia without behavioral disturbance (7) DVT prophylaxis Current Visit: No Status: Acute Assessment and plan: eliquis - Time Spent With Patient Total time spent is greater than 50% in coordination of care (as documented) at patient's floor/unit and/or counseling patient: - Subjective Interval history: Seen and examined at bedside; sitting up in chair at bedside. Remains alert to self only, unable to provide details. No change in mentation apparent from yesterday's exam. Pleasantly confused. No family at bedside for collateral. PT/OT recommending SNF for manager social work assisting with placement - Constitutional Vitals: Temp Pulse Resp BP Pulse Ox 98.1 F 75 15 111/65 94 10/29/17 14:39 10/29/17 14:39 10/29/17 14:39 10/29/17 14:39 10/29/17 14:39 General appearance: Present: A&O X 1, pleasant, no acute distress, answers questions appropriately - Head Head exam: Present: atraumatic, normocephalic - Eye Eye exam: Present: PERRL, conjuntiva pink, sclera anicteric Pupils: Present: PERRL - Neck Neck exam general surgery: Present: supple, trachea midline. Absent: lymphadenopathy - Respiratory Respiratory exam: Present: CTAB. Absent: accessory muscle use, rales, rhonchi, wheezes - Cardiovascular Cardiovascular exam: Present: RRR, +S1, +S2. Absent: diastolic murmur, gallop, rubs, systolic murmur - GI/Abdominal GI/Abdominal exam: Present: normal bowel sounds, soft, no peritoneal signs. Absent: distended, tenderness - Extremities Exam Extremities exam: Present: pedal edema (right ankle swelling and ecchymosis), warm, radial pulses palpable and symmetrical. Absent: calf tenderness, cyanotic - Neurological Exam Neurological exam: Present: CN II-XII intact, oriented X3, no focal deficits. Absent: pronater drift, facial droop, speech deficit - Skin Skin exam: Present: dry, intact Internal Medicine: Result - Labs CBC & Chem 7: 10/29/17 06:19 10/29/17 06:19 Labs: Short CBC 10/29/17 Range/Units 06:19 WBC 9.4 (4.3-11.1) K/mcL Hgb 13.1 (11.5-15.4) g/dL Hct 40.0 (35.3-44.9) % Plt Count 264 (140-400) K/mcL BMP 10/29/17 06:19 Sodium 139 Potassium 3.2 L Chloride 103 Carbon Dioxide 26 BUN 22 Creatinine 0.90 Glucose 109 H Calcium 9.2 - ABG Interpretation ABG results: PT/INR, D-dimer PT 12.3 Seconds (9.4-12.1) H 10/26/17 22:16 Consult Discharge Plan - Plan Referrals: Brayden Ramirez MD [Primary Care Provider] - 11/11/17 2:45 pm Nathaniel Hemphill DO [Partnered Physician] - 11/09/17 12:15 pm
[2017-10-30] MEDS: Aspirin 81 MG TAB.CHEW PO SCH (09:57)
[2017-10-30] MEDS: Ascorbic Acid 500 MG TABLET PO SCH (09:57)
[2017-10-30] MEDS: Diltiazem CD (24hr) 180 MG CAPSULE PO SCH (09:57)
[2017-10-30] MEDS: Losartan/HCTZ 50-12.5 TABLET PO SCH (09:57)
[2017-10-30] MEDS: Furosemide 20 MG TABLET PO SCH ×2 (09:57→19:04)
[2017-10-30] MEDS: Apixaban 5 MG TABLET PO SCH (09:58)
[2017-10-30] MEDS: Cholecalciferol (D-3) 1,000 UNIT TABLET PO SCH (09:59)
--- NOTE | 2017-10-30 11:23 | Internal Med Progress Note ---
Date of Encounter: 10/30/17 Time of Encounter: 11:21 - Assessment and plan (1) CVA (cerebral vascular accident) Current Visit: Yes Status: Acute Assessment and plan: presented with confusion and slurred speech. Head CT nonacute. Brain MRI with multiple areas of acute infarct within the medial left occipital lobe and tiny area of acute infarct within the medial left posterior parietal lobe; no evidence of intracranial hemorrhage. TTE with EF 50%, mild mitral/tricuspid regurgitation, no evidence of PFO. Bilateral carotid Dopplers with small nonstenotic plaque to right ICA and normal left ICA. Remains confused otherwise neurologically intact. Evaluated by neurology who suspect embolic source secondary to A. fib and also recommending long-term anticoagulation. Cont Eliquis, ASA, statin. Evaluated by PT/OT who is recommending SNF. 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 fib at OSH; no known history of A. fib. Initially rate controlled with heart rates up to the 120s. Evaluated by cardiology who ordered 1 time dose IV Cardizem followed by PO Cardizem. Per Cardiology, [id number] is 6 (Age, HTN, Female, TIA/CVA) and considered high CVA risk, therefore anticoagulation recommended. Now rate controlled. Cont eliquis, BB, CCB Qualifiers: Atrial fibrillation type: chronic Qualified Code(s): I48.2 - Chronic atrial fibrillation (3) Avulsion fracture of distal fibula Current Visit: Yes Status: Acute Assessment and plan: Right ankle with swelling and resolving ecchymosis. Right ankle x-ray shows possible avulsion injury to the distal fibula with overlying soft tissue swelling. Supportive care with compression wrap, elevation. (4) Hypertension Current Visit: No Status: Chronic Assessment and plan: per hx. BP controlled. Cont home BP medications. Monitor BP and titrate PRN Qualifiers: Hypertension type: essential hypertension Qualified Code(s): I10 - Essential (primary) hypertension (5) Hyperlipidemia Current Visit: No Status: Chronic Assessment and plan: Patient is not on any medication at home at this point. We will check lipid panel. Qualifiers: Hyperlipidemia type: mixed hyperlipidemia Qualified Code(s): E78.2 - Mixed hyperlipidemia (6) Dementia Current Visit: No Status: Acute Assessment and plan: per hx. with increased confusion secondary to acute CVA. Will likely need SNF at discharge. Supportive care. Qualifiers: Dementia type: unspecified type Dementia behavioral disturbance: without behavioral disturbance Qualified Code(s): F03.90 - Unspecified dementia without behavioral disturbance (7) DVT prophylaxis Current Visit: No Status: Acute Assessment and plan: eliquis - Time Spent With Patient Total time spent is greater than 50% in coordination of care (as documented) at patient's floor/unit and/or counseling patient: - Subjective Interval history: Seen and examined at bedside. No changes in exam to report. Remains alert to self only, pleasantly confused. She has no complaints. No family at bedside for collateral. Discussed with social media marketing specialist and awaiting authorization from insurance for SNF placement which will likely be on Thursday11/02/2017 - Constitutional Vitals: Temp Pulse Resp BP Pulse Ox 98.1 F 102 19 137/91 94 10/30/17 07:25 10/30/17 07:25 10/30/17 07:25 10/30/17 07:25 10/30/17 07:25 General appearance: Present: A&O X 1, pleasant, no acute distress, answers questions appropriately - Head Head exam: Present: atraumatic, normocephalic - Eye Eye exam: Present: PERRL, conjuntiva pink, sclera anicteric Pupils: Present: PERRL - Neck Neck exam general surgery: Present: supple, trachea midline. Absent: lymphadenopathy - Respiratory Respiratory exam: Present: CTAB. Absent: accessory muscle use, rales, rhonchi, wheezes - Cardiovascular Cardiovascular exam: Present: RRR, +S1, +S2. Absent: diastolic murmur, gallop, rubs, systolic murmur - GI/Abdominal GI/Abdominal exam: Present: normal bowel sounds, soft, no peritoneal signs. Absent: distended, tenderness - Extremities Exam Extremities exam: Present: pedal edema (Right foot with trace nonpitting edema and resolving ecchymosis.), warm, radial pulses palpable and symmetrical. Absent: calf tenderness, cyanotic - Neurological Exam Neurological exam: Present: CN II-XII intact, no focal deficits. Absent: pronater drift, facial droop, speech deficit - Skin Skin exam: Present: dry, intact Internal Medicine: Result - Labs CBC & Chem 7: 10/29/17 06:19 10/29/17 06:19 - ABG Interpretation ABG results: PT/INR, D-dimer PT 12.3 Seconds (9.4-12.1) H 10/26/17 22:16 Consult Discharge Plan - Plan Referrals: Brayden Ramirez MD [Primary Care Provider] - 11/11/17 2:45 pm Nathaniel Hemphill DO [Partnered Physician] - 11/09/17 12:15 pm
[2017-10-30 15:15] VITALS: BP 115/77
--- NOTE | 2017-10-30 15:37 | Discharge Summary ---
Orders not resulted at time of discharge: Pending orders 10/31/17 04:00 BMP [Basic Metabolic Panel] AM 0400 Complete Blood Count w/o Diff [HEME] AM 0400 Date of Encounter: 10/30/17 Time of Encounter: 15:35 - Discharge Diagnosis (1) CVA (cerebral vascular accident) Priority: Primary Status: Acute Assessment and Plan: presented with confusion and slurred speech. Head CT nonacute. Brain MRI with multiple areas of acute infarct within the medial left occipital lobe and tiny area of acute infarct within the medial left posterior parietal lobe; no evidence of intracranial hemorrhage. TTE with EF 50%, mild mitral/tricuspid regurgitation, no evidence of PFO. Bilateral carotid Dopplers with small nonstenotic plaque to right ICA and normal left ICA. Remains confused otherwise neurologically intact. Evaluated by neurology who suspect embolic source secondary to A. fib and also recommending long-term anticoagulation. Cont Eliquis, ASA, statin. Evaluated by PT/OT who is recommended SNF. 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 fib at OSH; no known history of A. fib. Initially rate controlled with heart rates up to the 120s. Evaluated by cardiology who ordered 1 time dose IV Cardizem followed by PO Cardizem. Per Cardiology, [id number] is 6 (Age, HTN, Female, TIA/CVA) and considered high CVA risk, therefore anticoagulation recommended. Now rate controlled. Cont eliquis, BB, CCB Qualifiers: Atrial fibrillation type: chronic Qualified Code(s): I48.2 - Chronic atrial fibrillation (3) Avulsion fracture of distal fibula Priority: Primary Status: Acute Assessment and Plan: Right ankle with swelling and resolving ecchymosis. Right ankle x-ray shows possible avulsion injury to the distal fibula with overlying soft tissue swelling. Supportive care with compression wrap, elevation. (4) Hypertension Priority: Primary Status: Chronic Assessment and Plan: per hx. BP controlled. Cont home BP medications. Qualifiers: Hypertension type: essential hypertension Qualified Code(s): I10 - Essential (primary) hypertension (5) Hyperlipidemia Priority: Secondary Status: Chronic Assessment and Plan: cont statin Qualifiers: Hyperlipidemia type: mixed hyperlipidemia Qualified Code(s): E78.2 - Mixed hyperlipidemia (6) Dementia Priority: Primary Status: Acute Assessment and Plan: per hx. with increased confusion secondary to acute CVA. Supportive care Qualifiers: Dementia type: unspecified type Dementia behavioral disturbance: without behavioral disturbance Qualified Code(s): F03.90 - Unspecified dementia without behavioral disturbance Hospital course: Ms. Marshall is a 87 year old female Discharge discussed with: patient (CC 10/30/17 progress note for further details) - Time Spent with Patient Total time spent providing and/or coordinating discharge services: - Discharge Medications Home Medications: Ascorbic Acid [Vitamin C] 1,000 mg PO DAILY 07/19/16 [History] Atenolol 100 mg PO DAILY 07/19/16 [History] Calcium Carbonate [Calcium] 600 mg PO DAILY 07/19/16 [History] Cholecalciferol (D-3) [Vitamin D] 2,000 unit PO DAILY 07/19/16 [History] Acetaminophen [Tylenol] 650 mg PO Q6HR PRN #0 tablet 07/22/16 [Rx] Potassium Chloride 10 meq PO DAILY #30 tab.er.prt 07/22/16 [Rx] Furosemide [Lasix] 20 mg PO DAILY 10/27/17 [History] Losartan Potassium [Cozaar] 100 mg PO DAILY 10/27/17 [History] Apixaban [Eliquis] 2.5 mg PO BID tablet 10/30/17 [Rx] Aspirin 81 mg PO DAILY tab.chew 10/30/17 [Rx] Atorvastatin [Lipitor] 40 mg PO HS tablet 10/30/17 [Rx] Diltiazem CD (24hr) [Cardizem CD] 180 mg PO DAILY cap.er.24h 10/30/17 [Rx] Allergies/Adverse Reactions: 3 Allergy/AdvReac Type Severity Reaction Status Date / Time No Known Allergies Allergy Verified 07/19/16 07:21 Date of admission: 10/26/17 22:13 Primary care physician: Brayden Ramirez MD Consults: 10/26/17 22:18 Consult to Cardiology [CONS] Routine Comment: Consulting Provider: Card[facility] Reason for Consult: A Fib for unknown onset time Call Completed: No Consult to Neurology [CONS] Routine Consulting Provider: [facility] Reason for Consult: TIA, progressive memory loss Call Completed: No 10/27/17 11:26 Consult to Physical Therapy [CONS] Routine Comment: Evaluate, develop and implement POC Reason for Consult: Evaluation Does patient have active BEDREST order?: No Is patient medically & hemodynamically stable?: Yes OT [Consult to Occupational Therapy] [CONS] Routine Comment: Evaluate, develop and implement POC Reason for Consult: Evaluation Does patient have active BEDREST order?: No Is patient medically & hemodynamically stable?: No 10/28/17 07:29 Consult to [facility] [CONS] Routine Reason for SW Consult: Family wants placement to ECF in [place] Discharging clinician: Kallie Mora Anticipated date of discharge: 10/30/17 - Constitutional Vitals: Temp Pulse Resp BP Pulse Ox 97.5 F L 79 19 115/77 93 10/30/17 15:14 10/30/17 15:14 10/30/17 15:14 10/30/17 15:14 10/30/17 15:14 General appearance: Present: A&O X 1, pleasant, no acute distress, answers questions appropriately - Head Head exam: Present: atraumatic, normocephalic - Eye Eye exam: Present: PERRL, conjuntiva pink, sclera anicteric Pupils: Present: PERRL - Neck Neck exam general surgery: Present: supple, trachea midline. Absent: lymphadenopathy - Respiratory Respiratory exam: Present: CTAB. Absent: accessory muscle use, rales, rhonchi, wheezes - Cardiovascular Cardiovascular exam: Present: RRR, +S1, +S2. Absent: diastolic murmur, gallop, rubs, systolic murmur - GI/Abdominal GI/Abdominal exam: Present: normal bowel sounds, soft, no peritoneal signs. Absent: distended, tenderness - Extremities Exam Extremities exam: Present: warm, radial pulses palpable and symmetrical. Absent : calf tenderness, cyanotic, pedal edema - Neurological Exam Neurological exam: Present: CN II-XII intact, no focal deficits. Absent: pronater drift, facial droop, speech deficit - Skin Skin exam: Present: dry, intact - Patient Status Disposition: Transfer SNF Condition: Good Functional capacity at discharge: uses cane/walker Overall status at discharge: patient is progressing back to baseline - Discharge Instructions Follow Up With: Brayden Ramirez MD [Primary Care Provider] - 11/11/17 2:45 pm Nathaniel Hemphill DO [Partnered Physician] - 11/09/17 12:15 pm - Diet and Activity Activity: as per physical therapy Diet: regular diet
--- NOTE | 2017-10-30 15:42 | Physician Discharge Referral ---
ExtendedCare Referral Info Transfer To: SNF Provider in Charge: Klalie Mora CNP Provider in Charge after Transfer: PCP Institutional Level of Care: Skilled - Diagnosis (1) CVA (cerebral vascular accident) Status: Acute (2) A-fib Status: Acute (3) Avulsion fracture of distal fibula Status: Acute (4) Hypertension Status: Chronic (5) Hyperlipidemia Status: Chronic (6) Dementia Status: Acute - Transfer Medications Home Medications: Ascorbic Acid [Vitamin C] 1,000 mg PO DAILY 07/19/16 [History] Atenolol 100 mg PO DAILY 07/19/16 [History] Calcium Carbonate [Calcium] 600 mg PO DAILY 07/19/16 [History] Cholecalciferol (D-3) [Vitamin D] 2,000 unit PO DAILY 07/19/16 [History] Acetaminophen [Tylenol] 650 mg PO Q6HR PRN #0 tablet 07/22/16 [Rx] Potassium Chloride 10 meq PO DAILY #30 tab.er.prt 07/22/16 [Rx] Furosemide [Lasix] 20 mg PO DAILY 10/27/17 [History] Losartan Potassium [Cozaar] 100 mg PO DAILY 10/27/17 [History] Apixaban [Eliquis] 2.5 mg PO BID tablet 10/30/17 [Rx] Aspirin 81 mg PO DAILY tab.chew 10/30/17 [Rx] Atorvastatin [Lipitor] 40 mg PO HS tablet 10/30/17 [Rx] Diltiazem CD (24hr) [Cardizem CD] 180 mg PO DAILY cap.er.24h 10/30/17 [Rx] Allergies/Adverse Reactions: 3 Allergy/AdvReac Type Severity Reaction Status Date / Time No Known Allergies Allergy Verified 07/19/16 07:21 - Respiratory Orders None Smoking Cessation: Smoking cessation has been advised. For more information, call the [place] Tobacco Quit Line at 5-401-WQCT-NOW. - Advance Directives Code Status: Full Code - Rehabiliation Orders Rehab Potential: Good Rehab Orders: Evaluation for Physical Therapy, Evaluation for Occupational Therapy - Diet Orders Regular CERTIFICATION: I certify that the transfer of the above named patient to an Extended Care Facility is necessary for the continuing treatment of the diagnosis listed. The above information is true and accurate reflection of patient's current condition. Confidential - Redisclosure prohibited without a patient's written consent.
== END 2017-10-30 19:21 | DRG 66 ==
LOC: 3BNU
PROVIDERS: ADMIT Hospitalist; ATTEND Hospitalist